=== PATIENT | female | born 1965 ===

== ENCOUNTER 2017-07-26 16:34 | Emergency (ER) | payer MEDICARE, OTHER ==
[2017-07-26 17:18] VITALS: BMI 40.8
[2017-07-26 17:23] VITALS: RESP 18; TEMP 98.5
--- NOTE | 2017-07-26 19:06 | ED PDOC ---
Arrival/HPI - General Chief Complaint: Dental Pain Time Seen by Provider: 07/26/17 19:02 Historian: Patient - History of Present Illness Narrative History of Present Illness (Text): 07/26/17 19:03 This 51 yo male presents to this this ED c/o gum swelling and pain x 3 weeks. Pain worsen today. Patient noted she had teeth extraction x 3 weeks ago. Patient has an appointment to see her maxillo facial surgeon next week. Patient denies fever, dysphagia, sore throat, facial swelling or FAR[place]TH. Time/Duration: Other (see hpi) Quality: Aching Context: Home Past Medical History - Provider Review Nursing Documentation Reviewed: Yes - Infectious Disease Hx of Infectious Diseases: None - Tetanus Immunization Tetanus Immunization: Unknown - Cardiac Hx Cardiac Disorders: Yes Hx Hypertension: Yes - Pulmonary Hx Respiratory Disorders: No - Neurological Hx Neurological Disorder: No - HEENT Hx HEENT Disorder: No - Renal Hx Renal Disorder: No - Endocrine/Metabolic Hx Endocrine Disorders: Yes Hx Diabetes Mellitus Type 2: Yes - Hematological/Oncological Hx Blood Disorders: Yes Hx Anemia: Yes - Integumentary Hx Dermatological Disorder: No - Musculoskeletal/Rheumatological Hx Musculoskeletal Disorders: No - Gastrointestinal Hx Gastrointestinal Disorders: No - Genitourinary/Gynecological Hx Genitourinary Disorders: No - Psychiatric Hx Psychophysiologic Disorder: Yes Hx Anxiety: Yes Hx Bipolar Disorder: Yes Hx Hallucinations: No Hx Substance Use: No - Surgical History Other/Comment: cesarian sectionx2 - Anesthesia Hx Anesthesia: Yes Hx Anesthesia Reactions: No Hx Malignant Hyperthermia: No - Suicidal Assessment Feels Threatened In Home Enviroment: No Family/Social History - Physician Review Nursing Documentation Reviewed: Yes Family/Social History: Other (non-contributory) Smoking Status: Former Smoker Hx Alcohol Use: No Hx Substance Use: No Hx Substance Use Treatment: No Allergies/Home Meds Allergies/Adverse Reactions: Allergies No Known Allergies Allergy (Verified 07/26/17 17:44) Home Medications: Home Meds Medication Instructions Recorded Confirmed [place] Carbonate [[place] Carb] 300 mg PO DAILY 06/15/13 07/26/17 Risperidone [Risperdal] 1 mg PO DAILY 06/15/13 07/26/17 Sitagliptin Phos/Metformin HCl 1 ter PO BID 06/15/13 07/26/17 [Janumet Xr 1000 mg-50 mg] Atorvastatin Calcium [Lipitor] 40 mg PO HS 12/07/14 07/26/17 Fenofibric Acid (Choline) 135 mg PO HS 12/07/14 07/26/17 [Trilipix] Hydrochlorothiazide/Valsarta 1 tab PO DAILY 12/07/14 07/26/17 [Diovan Hct 12.5 mg-320 mg] Insulin Detemir [Levemir Flexpen] 50 unit SC BID 12/07/14 07/26/17 Magnesium Oxide [Mag-Ox 400] 400 mg PO DAILY 12/07/14 07/26/17 Oxcarbazepine [Trileptal] 150 mg PO BID 12/07/14 07/26/17 Sertraline HCl [Zoloft] 25 mg PO DAILY 12/07/14 07/26/17 Review of Systems - Review of Systems Constitutional: Normal. absent: Fatigue, Weight Change, Fevers, Night Sweats Eyes: Normal ENT: Other (see hpi) Respiratory: Normal. absent: SOB, Cough Cardiovascular: Normal. absent: Chest Pain Gastrointestinal: Normal. absent: Abdominal Pain, Nausea, Vomiting Genitourinary Female: Normal Musculoskeletal: Normal Skin: Normal. absent: Rash Neurological: Normal. absent: Headache, Dizziness, Focal Weakness Endocrine: Normal Hemo/Lymphatic: Normal Psychiatric: Normal Physical Exam Vital Signs Temp Pulse Resp BP Pulse Ox 07/26/17 17:22 98.5 F 89 18 118/79 90 L Temperature: Afebrile Blood Pressure: Normal Pulse: Regular Respiratory Rate: Normal Appearance: Positive for: Well-Appearing, Non-Toxic, Comfortable Pain Distress: None Mental Status: Positive for: Alert and Oriented X 3 - Systems Exam Head: Present: Atraumatic, Normocephalic Pupils: Present: PERRL Extroacular Muscles: Present: EOMI Conjunctiva: Present: Normal Ears: Present: Normal, NORMAL TM, Normal Canal. No: Erythema Mouth: Present: Moist Mucous Membranes, Other (upper front gum mild swollen. No dental abscess or tenderness. no facial swelling) Pharnyx: Present: Normal. No: ERYTHEMA, EXUDATE, TONSILS ENLARGED, Peritonsilar Swelling, Uvular Deviation, Muffled/Hoarse Voice Nose (External): Present: Atraumatic Nose (Internal): Present: Normal Inspection Neck: Present: Normal Range of Motion Upper Extremity: Present: Normal Inspection, Normal ROM Lower Extremity: Present: Normal Inspection, Normal ROM Neurological: Present: GCS=15, CN II-XII Intact, Speech Normal, Motor Func Grossly Intact, Normal Sensory Function, Normal Cerebellar Funct, Gait Normal Skin: Present: Warm, Dry, Normal Color. No: Rashes Psychiatric: Present: Alert, Oriented x 3 Medical Decision Making ED Course and Treatment: 07/26/17 19:09 Re-evaluation. Patient feels better. Discussed results and plan with patient who expresses understanding. All questions answered and there is agreement with the plan to discharge home with instructions. Patient stable for discharge. Return if symptoms persist or worsen. Re-evaluation Time: 19:07 Reassessment Condition: Re-examined, Improved Disposition/Present on Arrival - Present on Arrival Any Indicators Present on Arrival: No History of DVT/PE: No History of Uncontrolled Diabetes: No Urinary Catheter: No History of Decub. Ulcer: No History Surgical Site Infection Following: None - Disposition Have Diagnosis and Disposition been Completed?: Yes Diagnosis: Swelling of gums, Toothache Disposition: HOME/ ROUTINE Disposition Time: 19:09 Patient Plan: Discharge Condition: GOOD Discharge Instructions (ExitCare): Toothache (ED) Additional Instructions: Call [facility] surgeon for follow up visit. take medication with food. Return to emergency if symptoms worsen. Prescriptions: Amoxicillin [Amoxil 500 mg Cap] 500 mg PO TID #30 cap Chlorhexidine 0.12% [Peridex] 15 ml PO BID #1 bottle Naproxen 500 mg PO BID PRN #14 tab PRN Reason: Pain, Severe (8-10) Referrals: Ryan Brown MD [Primary Care Provider] - Follow up with primary Forms: [employer] (Thai)
[2017-07-26] MEDS ORDERED: Naproxen 550 mg Tab PO STA (19:08)
[2017-07-26 19:21] VITALS: BP 112/73; PULSE 82; O2SAT 98
== END 2017-07-26 19:20 | disposition home or self-care (01) ==
LOC: ED 16:34
DX: K08.89 Other specified disorders of teeth and supporting structures (principal); K06.8 Other specified disorders of gingiva and edentulous alveolar ridge

== ENCOUNTER 2018-09-07 15:17 | Emergency (ER) | payer MEDICARE, OTHER ==
[2018-09-07] MEDS ORDERED: Sodium Chloride 0.9% 1,000 ML IV STA ×2 (15:48→17:48)
[2018-09-07] MEDS ORDERED: Insulin Regular 1 UNITS/0.01 ML ML IVP STA (15:48)
[2018-09-07 16:03] VITALS: O2SAT 100; BMI 35.9
[2018-09-07 16:26] LABS: BASO # 0.01 K/mm3 (0.0-2.0); BASO % 0.2 % (0.0-3.0); EOS % 0.3 % (1.5-5.0); GRAN # 4.44 (1.4-6.5); GRAN % 66.7 % (50.0-68.0); HEMOGLOBIN 11.8 g/dL (12.0-16.0); LYMPH # 1.4 (1.2-3.4); LYMPH % 21.7 % (22.0-35.0); MEAN CELL VOLUME 76.5 fl (80.0-105.0); MEAN CORPUSCULAR HGB CONC 32.7 g/dl (31.0-37.0); MEAN PLATELET VOLUME 10.4 fl (7.0-11.0); MONO # 0.7 (0.1-0.6); MONO % 11.1 % (1.0-6.0); RBC 4.72 10^6/uL (3.5-6.1); RED CELL DISTRIBUTION WIDTH 12.9 % (11.5-14.5); WHITE BLOOD COUNT 6.7 10^3/ul (4.5-11.0)
[2018-09-07 16:30] LABS: INR 1.08; PARTIAL THROMBOPLASTIN TIME 26.4 Seconds (25.1-36.5); PROTHROMBIN TIME 12.3 SECONDS (9.4-12.5)
--- NOTE | 2018-09-07 16:31 | CT ---
Date of service: 09/07/2018 PROCEDURE: CT HEAD WITHOUT CONTRAST. HISTORY: dizziness COMPARISON: None available. TECHNIQUE: Axial computed tomography images were obtained through the head/brain without intravenous contrast. Radiation dose: Total exam DLP = 755.87 mGy-cm. This CT exam was performed using one or more of the following dose reduction techniques: Automated exposure control, adjustment of the mA and/or kV according to patient size, and/or use of iterative reconstruction technique. FINDINGS: HEMORRHAGE: No intracranial hemorrhage. BRAIN: No mass effect or edema. No atrophy or chronic microvascular ischemic changes. VENTRICLES: Unremarkable. No hydrocephalus. CALVARIUM: Unremarkable. PARANASAL SINUSES: Unremarkable as visualized. No significant inflammatory changes. MASTOID AIR CELLS: Unremarkable as visualized. No inflammatory changes. OTHER FINDINGS: None. IMPRESSION: No acute findings
[2018-09-07 16:54] LABS: TROPONIN I < 0.01 ng/mL
[2018-09-07 16:55] LABS: URINE APPEARANCE SLIGHT-CLOUDY (CLEAR); URINE BILIRUBIN NEGATIVE (NEGATIVE); URINE BLOOD TRACE-LYSED (NEGATIVE); URINE COLOR YELLOW (YELLOW); URINE GLUCOSE (UA) >=1000 mg/dL (NEGATIVE); URINE LEUKOCYTE ESTERASE SMALL Leu/uL (NEGATIVE); URINE PROTEIN 30 mg/dL (<30 mg/dL)
[2018-09-07 16:59] LABS: URINE BACTERIA TRACE (NEG)
[2018-09-07 16:59] LABS: ALT/SGPT 30 U/L (7-56); AST/SGOT 37 U/L (14-36); BLOOD UREA NITROGEN 16 mg/dL (7-21); CALCIUM 9.4 mg/dL (8.4-10.5); GFR NON-AFRICAN AMERICAN > 60
[2018-09-07 17:00] LABS: URINE AMORPHOUS SEDIMENT MODERATE
[2018-09-07] MEDS ORDERED: Potassium Chloride 20 mEq ER Tab PO STA (17:03)
--- NOTE | 2018-09-07 17:50 | RAD ---
Date of service: 09/07/2018 PROCEDURE: CHEST RADIOGRAPH, 1 VIEW HISTORY: admission COMPARISON: 10/01/2016. FINDINGS: LUNGS: Clear. PLEURA: No pneumothorax or pleural fluid seen. CARDIOVASCULAR: Normal. OSSEOUS STRUCTURES: No significant abnormalities. VISUALIZED UPPER ABDOMEN: Normal. OTHER FINDINGS: None. IMPRESSION: No active pulmonary disease.
--- NOTE | 2018-09-07 17:55 | ED PDOC ---
Addendum entered and electronically signed by Rosalva Holt PA 09/10/18 17:32: Addendum Addendum: 09/10/18 17:32 called patient and left message to call back regarding urine culture. Original Note: Arrival/HPI - General Historian: Patient - History of Present Illness Narrative History of Present Illness (Text): 09/07/18 17:54 52yo female with pmhx of hypertension, Diabetes, bipolar, depression who was referred to the ED from Dr. Brown's office to r/o DKA. Patient reports generalized weakness with decreased appetite x 5days. States she didn't take any of her medications for these days. States she slept, woke up and went back to sleep. She denies any focal weakness, chest pain, SOB, diaphoresis, fever,chills, nausea, vomiting, abdominal pain, any other complaint. <Martha Bal - Last Filed: 09/07/18 19:00> <Rosalva Holt - Last Filed: 09/10/18 17:32> <Wolfgang Sinclair - Last Filed: 09/11/18 23:57> - General Chief Complaint: Weakness/Neurological Deficit Time Seen by Provider: 09/07/18 15:22 Past Medical History - Provider Review Nursing Documentation Reviewed: Yes - Infectious Disease Hx of Infectious Diseases: None - Tetanus Immunization Tetanus Immunization: Unknown - Reproductive Menopause: No - Cardiac Hx Cardiac Disorders: Yes Hx Hypertension: Yes - Pulmonary Hx Respiratory Disorders: Yes Hx Asthma: Yes - Neurological Hx Neurological Disorder: No - HEENT Hx HEENT Disorder: No - Renal Hx Renal Disorder: No - Endocrine/Metabolic Hx Endocrine Disorders: Yes Hx Diabetes Mellitus Type 2: Yes - Hematological/Oncological Hx Blood Disorders: Yes Hx Anemia: Yes - Integumentary Hx Dermatological Disorder: No - Musculoskeletal/Rheumatological Hx Musculoskeletal Disorders: No - Gastrointestinal Hx Gastrointestinal Disorders: No - Genitourinary/Gynecological Hx Genitourinary Disorders: Yes Hx Urinary Tract Infection: Yes - Psychiatric Hx Psychophysiologic Disorder: Yes Hx Anxiety: Yes Hx Bipolar Disorder: Yes Hx Depression: Yes Hx Hallucinations: No Hx Substance Use: No - Surgical History Hx Section: Yes Hx Tubal Ligation: Yes Other/Comment: cesarian sectionx2 - Anesthesia Hx Anesthesia: Yes Hx Anesthesia Reactions: No Hx Malignant Hyperthermia: No - Suicidal Assessment Feels Threatened In Home Enviroment: No <Diru,Happiness A - Last Filed: 09/07/18 19:00> Family/Social History - Physician Review Nursing Documentation Reviewed: Yes Family/Social History: Unknown Family HX Smoking Status: Former Smoker Hx Alcohol Use: No Hx Substance Use: No Hx Substance Use Treatment: No <Diru,Happiness A - Last Filed: 09/07/18 19:00> Allergies/Home Meds <Diru,Happiness A - Last Filed: 09/07/18 19:00> <Rosalva Holt T - Last Filed: 09/10/18 17:32> <Wolfgang Sinclair - Last Filed: 09/11/18 23:57> Allergies/Adverse Reactions: Allergies No Known Allergies Allergy (Verified 07/26/17 17:44) Home Medications: Home Meds Medication Instructions Recorded Confirmed Sitagliptin Phos/Metformin HCl 1 ter PO BID 06/15/13 09/07/18 [Janumet Xr 1000 mg-50 mg] Atorvastatin Calcium [Lipitor] 80 mg PO HS 12/07/14 09/07/18 Benzonatate [Tessalon Perle] 200 mg PO TID 09/07/18 09/07/18 Carvedilol [Coreg] 25 mg PO BID 09/07/18 09/07/18 DULoxetine [Cymbalta] 1 cap PO HS 09/07/18 09/07/18 Ergocalciferol [Drisdol 50,000 1 cap PO Q3D 09/07/18 09/07/18 Intl Units Cap] Fluticasone/Salmeterol 500/50 1 puff IH DAILY 09/07/18 09/07/18 [Advair Diskus 500/50] Folic Acid 1 tab PO DAILY 09/07/18 09/07/18 Icosapent Ethyl [Vascepa] 2 cap PO BID 09/07/18 09/07/18 Insulin Detemir [Levemir] 60 unit SC BID 09/07/18 09/07/18 Liraglutide [Victoza 2-Clayton] 1.8 mg SC DAILY 09/07/18 09/07/18 Pantoprazole [Protonix EC Tab] 1 tab PO DAILY 09/07/18 09/07/18 RX: Magnesium Oxide [Mag-Ox] 1 tab PO BID 09/07/18 09/07/18 Review of Systems - Physician Review All systems were reviewed & negative as marked: Yes - Review of Systems Constitutional: Fatigue Eyes: Normal ENT: Normal Respiratory: Normal Cardiovascular: Normal Gastrointestinal: Normal Genitourinary Female: Normal Musculoskeletal: Normal Skin: Normal Neurological: Normal Endocrine: Normal Hemo/Lymphatic: Normal Psychiatric: Normal <DiruHappiness A - Last Filed: 09/07/18 19:00> Physical Exam Vital Signs Reviewed: Yes Vital Signs Temp Pulse Resp BP Pulse Ox 09/07/18 15:41 98.7 F 99 H 18 137/78 100 Temperature: Afebrile Blood Pressure: Normal Pulse: Regular Respiratory Rate: Normal Appearance: Positive for: Well-Appearing, Non-Toxic, Comfortable Pain Distress: None Mental Status: Positive for: Alert and Oriented X 3 Finger Stick Blood Glucose: 304 - Systems Exam Head: Present: Atraumatic, Normocephalic Pupils: Present: PERRL Extroacular Muscles: Present: EOMI Conjunctiva: Present: Normal Mouth: Present: Moist Mucous Membranes Neck: Present: Normal Range of Motion Respiratory/Chest: Present: Clear to Auscultation, Good Air Exchange. No: Respiratory Distress, Accessory Muscle Use Cardiovascular: Present: Regular Rate and Rhythm, Normal S1, S2. No: Murmurs Abdomen: No: Tenderness, Distention, Peritoneal Signs Back: Present: Normal Inspection Upper Extremity: Present: Normal Inspection. No: Cyanosis, Edema Lower Extremity: Present: Normal Inspection. No: Edema Neurological: Present: GCS=15, CN II-XII Intact, Speech Normal Skin: Present: Warm, Dry, Normal Color. No: Rashes Psychiatric: Present: Alert, Oriented x 3, Normal Insight, Normal Concentration <Diru,Happiness A - Last Filed: 09/07/18 19:00> Vital Signs Temp Pulse Resp BP Pulse Ox 09/07/18 19:51 100 09/07/18 19:49 98.3 F 94 H 17 148/80 100 09/07/18 19:17 99 H 18 150/75 100 09/07/18 17:54 89 17 135/80 100 09/07/18 15:41 98.7 F 99 H 18 137/78 100 <Wolfgang Sinclair - Last Filed: 09/11/18 23:57> Medical Decision Making ED Course and Treatment: 10/18/18 19:00 PT in ED for stated history. She was not in any distress. She was ambulating well in ED. Neurologically intact and hemodynamically stable. FS was 439 in ED Labs 1L NS, 10units insulin IVP CXR Head CT EKG On re evaluation pt remain stable and in no distress Lab reviewed and BS of 503 was noted. No AG. Repeat FS was 309 in ED EKG NSR @99bpm NSTEMI CXR NAD Head CT - No acute finding Result was DW Dr. Brown while he was in ED and he recommended that pt be DC home to f/u with his office on Tuesday Repeat FS s/p second liter of NS was given - Lab Interpretations Lab Results: 09/07/18 15:35 09/07/18 15:35 Lab Results 09/07/18 16:52: Urine Color Yellow, Urine Appearance Slight-cloudy, Urine pH 6.0, Ur Specific [place] 1.010, Urine Protein 30 H, Urine Glucose (UA) >=1000, Urine Ketones Negative, Urine Blood Trace-lysed H, Urine Nitrate Negative, Urine Bilirubin Negative, Urine Urobilinogen 1.0 H, Ur Leukocyte Esterase Small H, Urine RBC 10 - 15, Urine WBC 5 - 10, Ur Epithelial Cells 10 - 12, Amorphous Sediment Moderate, Urine Bacteria Trace 09/07/18 15:37: POC Glucose (mg/dL) 423 H* 09/07/18 15:35: Sodium 132, Potassium 3.1 L, Chloride 88 L, Carbon Dioxide 31, Anion Gap 16, BUN 16, Creatinine 0.5 L, Est GFR ( Amer) > 60, Est GFR (Non-Af Amer) > 60, Random Glucose 505 H*, Calcium 9.4, Magnesium 2.1, Total Bilirubin 1.0, AST 37 H, ALT 30, Alkaline Phosphatase 193 H, Lactate Dehydrogenase 538, Total Creatine Kinase 61, Troponin I < 0.01, Total Protein 8.0, Albumin 4.0, Globulin 4.0, Albumin/Globulin Ratio 1.0 L 09/07/18 15:35: PT 12.3, INR 1.08, APTT 26.4 09/07/18 15:35: WBC 6.7 D, RBC 4.72, Hgb 11.8 L, Hct 36.1, MCV 76.5 L, MCH 25.0, MCHC 32.7, RDW 12.9, Plt Count 236, MPV 10.4, Gran % 66.7, Lymph % (Auto) 21.7 L, Gaines % (Auto) 11.1 H, Eos % (Auto) 0.3 L, Baso % (Auto) 0.2, Gran # 4.44, Lymph # (Auto) 1.4, Gaines # (Auto) 0.7 H, Eos # (Auto) 0.0, Baso # (Auto) 0.01 - RAD Interpretation Radiology Orders: 09/07/18 15:43 CHEST ONE VIEW [RAD] Stat 09/07/18 15:45 HEAD W/O CONTRAST [CT] Stat - Medication Orders Current Medication Orders: Sodium Chloride (Sodium Chloride 0.9%) 1,000 mls @ 999 mls/hr IV .Q1H1M STA Stop: 09/07/18 18:48 Discontinued Medications Sodium Chloride (Sodium Chloride 0.9%) 1,000 mls @ 999 mls/hr IV .Q1H1M STA Stop: 09/07/18 16:48 Last Admin: 09/07/18 16:07 Dose: 999 mls/hr eMAR Start Stop Document 09/07/18 16:07 (Rec: 09/07/18 16:07 [id number][facility] Intravenous Solution Start Date 09/07/18 Start Time 16:07 End Date 09/07/18 End time 17:18 Total Infusion Time 71 Insulin Human Regular (Humulin R) 10 units IVP ONCE STA Stop: 09/07/18 15:49 Last Admin: 09/07/18 16:09 Dose: 10 u MAR Blood Glucose Document 09/07/18 16:09 (Rec: 09/07/18 16:09 [id number]) Blood Glucose Finger Stick Blood Glucose (70-120) 423 IVP Administration Document 09/07/18 16:09 (Rec: 09/07/18 16:09 [id number]) Charges for Administration # of IVP Administrations 1 Potassium Chloride (K-Dur 20 Meq Er Tab) 40 meq PO STAT STA Stop: 09/07/18 17:04 Last Admin: 09/07/18 17:29 Dose: 40 meq <Diru,Happiness A - Last Filed: 09/07/18 19:00> - Lab Interpretations Microbiology Results: Microbiology Results 09/07/18 23:28 Urine,Clean Catch Urine Culture - Final Klebsiella Pneumoniae Ssp Pneu Lab Results: 09/07/18 15:35 09/07/18 15:35 Lab Results 09/07/18 19:44: POC Glucose (mg/dL) 274 H 09/07/18 18:00: pCO2 42, pO2 61.0 L, HCO3 30.6 H, ABG pH 7.47 H, ABG Total CO2 31.9 H, ABG O2 Saturation 95.4, ABG O2 Content 14.1 L, ABG Base Excess 6.3 H, ABG Hemoglobin 10.9 L, ABG Carboxyhemoglobin 2.5 H, POC ABG HHb (Measured) 4.4, ABG Methemoglobin 1.6, ABG O2 Capacity 14.8 L, Hgb O2 Saturation 91.6 L, FiO2 21.0 09/07/18 17:46: POC Glucose (mg/dL) 304 H 09/07/18 16:52: Urine Color Yellow, Urine Appearance Slight-cloudy, Urine pH 6.0, Ur Specific [place] 1.010, Urine Protein 30 H, Urine Glucose (UA) >=1000, Urine Ketones Negative, Urine Blood Trace-lysed H, Urine Nitrate Negative, Urine Bilirubin Negative, Urine Urobilinogen 1.0 H, Ur Leukocyte Esterase Small H, Urine RBC 10 - 15, Urine WBC 5 - 10, Ur Epithelial Cells 10 - 12, Amorphous Sediment Moderate, Urine Bacteria Trace 09/07/18 15:37: POC Glucose (mg/dL) 423 H* 09/07/18 15:35: Sodium 132, Potassium 3.1 L, Chloride 88 L, Carbon Dioxide 31, Anion Gap 16, BUN 16, Creatinine 0.5 L, Est GFR ( Amer) > 60, Est GFR (Non-Af Amer) > 60, Random Glucose 505 H*, Calcium 9.4, Magnesium 2.1, Total Bilirubin 1.0, AST 37 H, ALT 30, Alkaline Phosphatase 193 H, Lactate Dehydrogenase 538, Total Creatine Kinase 61, Troponin I < 0.01, Total Protein 8.0, Albumin 4.0, Globulin 4.0, Albumin/Globulin Ratio 1.0 L 09/07/18 15:35: PT 12.3, INR 1.08, APTT 26.4 09/07/18 15:35: WBC 6.7 D, RBC 4.72, Hgb 11.8 L, Hct 36.1, MCV 76.5 L, MCH 25.0, MCHC 32.7, RDW 12.9, Plt Count 236, MPV 10.4, Gran % 66.7, Lymph % (Auto) 21.7 L, Gaines % (Auto) 11.1 H, Eos % (Auto) 0.3 L, Baso % (Auto) 0.2, Gran # 4.44, Lymph # (Auto) 1.4, Gaines # (Auto) 0.7 H, Eos # (Auto) 0.0, Baso # (Auto) 0.01 - RAD Interpretation Radiology Orders: 09/07/18 15:43 CHEST ONE VIEW [RAD] Stat 09/07/18 15:45 HEAD W/O CONTRAST [CT] Stat - Medication Orders Current Medication Orders: Discontinued Medications Cephalexin Monohydrate (Keflex) 500 mg PO STAT STA; Protocol Stop: 09/07/18 17:58 Sodium Chloride (Sodium Chloride 0.9%) 1,000 mls @ 999 mls/hr IV .Q1H1M STA Stop: 09/07/18 16:48 Last Admin: 09/07/18 16:07 Dose: 999 mls/hr eMAR Start Stop Document 09/07/18 16:07 SF (Rec: 09/07/18 16:07 [id number]) Intravenous Solution Start Date 09/07/18 Start Time 16:07 End Date 09/07/18 End time 17:18 Total Infusion Time 71 Sodium Chloride (Sodium Chloride 0.9%) 1,000 mls @ 999 mls/hr IV .Q1H1M STA Stop: 09/07/18 18:48 Last Admin: 09/07/18 17:56 Dose: 999 mls/hr eMAR Start Stop Document 09/07/18 17:56 SF (Rec: 09/07/18 17:56 [id number]) Intravenous Solution Start Date 09/07/18 Start Time 17:56 End Date 09/07/18 End time 18:57 Total Infusion Time 61 Insulin Human Regular (Humulin R) 10 units IVP ONCE STA Stop: 09/07/18 15:49 Last Admin: 09/07/18 16:09 Dose: 10 u MAR Blood Glucose Document 09/07/18 16:09 SF (Rec: 09/07/18 16:09 [id number]) Blood Glucose Finger Stick Blood Glucose (70-120) 423 IVP Administration Document 09/07/18 16:09 SF (Rec: 09/07/18 16:09 [id number]) Charges for Administration # of IVP Administrations 1 Potassium Chloride (K-Dur 20 Meq Er Tab) 40 meq PO STAT STA Stop: 09/07/18 17:04 Last Admin: 09/07/18 17:29 Dose: 40 meq <Wolfgang Sinclair - Last Filed: 09/11/18 23:57> - PA / WEIGHT ENGINEER / Resident Statement / has reviewed & agrees with the documentation as recorded. <Wolfgang Sinclair - Last Filed: 09/11/18 23:57> Disposition/Present on Arrival - Present on Arrival Any Indicators Present on Arrival: No History of DVT/PE: No History of Uncontrolled Diabetes: No Urinary Catheter: No History of Decub. Ulcer: No History Surgical Site Infection Following: None - Disposition Have Diagnosis and Disposition been Completed?: Yes Disposition Time: 18:30 Patient Plan: Discharge <Martha Bal - Last Filed: 09/07/18 19:00> <Rosalva Holt - Last Filed: 09/10/18 17:32> <Wolfgang Sinclair - Last Filed: 09/11/18 23:57> - Disposition Diagnosis: Hyperglycemia due to type 2 diabetes mellitus Disposition: HOME/ ROUTINE Condition: STABLE Discharge Instructions (ExitCare): Hyperglycemia, Adult Additional Instructions: Follow up with your Doctor, Dr. Brown on Tuesday Return to ED for any worsening symptoms Prescriptions: Cephalexin [Keflex] 500 mg PO TID #21 capsule Referrals: Ryan Brown MD [Staff Provider] - Follow up with primary Forms: DrNaturalHealing (Sami)
[2018-09-07 18:11] LABS: ARTERIAL BLOOD GAS HCO3 30.6 mmol/L (21-28); ARTERIAL BLOOD GAS HEMOGLOBIN 10.9 g/dL (11.7-17.4); ARTERIAL BLOOD GAS O2 CAPACITY 14.8 mL/dl (16-24); ARTERIAL BLOOD GAS O2 CONTENT 14.1 ML/dl (15-23); ARTERIAL BLOOD GAS O2 SAT 95.4 % (95-98); ARTERIAL BLOOD GAS PCO2 42 mm/Hg (35-45); ARTERIAL BLOOD GAS PH 7.47 (7.35-7.45); ARTERIAL BLOOD GAS TCO2 31.9 mmol.L (22-28)
[2018-09-07 19:51] VITALS: BP 148/80; PULSE 94; RESP 17; TEMP 98.3
--- NOTE | 2018-09-07 22:07 | CARD ---
APPROVED REPORT Date of service: 09/07/2018 EKG Measurement Heart [id number] <Conclusion> Normal sinus rhythm Possible Left atrial enlargement Borderline ECG
== END 2018-09-07 19:51 | disposition home or self-care (01) ==
LOC: ED 15:17
DX: E11.65 Type 2 diabetes mellitus with hyperglycemia (principal); I10 Essential (primary) hypertension; F31.9 Bipolar disorder, unspecified; Z87.891 Personal history of nicotine dependence
CPT/HCPCS: 70450; 71045; 80053; 81001; 82550; 82803; 82948; 83615; 83735; 84484; 85025; 85610; 85730; 87086; 87181; 93005; 96361; 96374; 99285; J7030

== ENCOUNTER 2018-09-13 20:53 | Inpatient (IN) | payer MEDICARE, OTHER ==
[2018-09-13 20:53] VITALS: BMI 40.8
--- NOTE | 2018-09-13 23:11 | ED PDOC ---
Arrival/HPI - General Time Seen by Provider: 09/13/18 22:45 Historian: Patient - History of Present Illness Narrative History of Present Illness (Text): 09/13/18 23:05 Danica Addison is a 52 year old female, whose past medical history includes hypertension, hyperlipidemia, bipolar disorder, anxiety, depression, IDDM, diabetic neuropathy, gastroparesis, recurrent UTIs, asthma, and fibroid uterus, who presents to the Emergency department complaining of vomiting. Patient states she has been experiencing nausea with multiple episodes of vomiting and diffuse abdominal pain. Patient reports associated chest pain, dry mouth, and dizziness. Patient states she has been unable to tolerate PO secondary to recurrent vomiting. Patient was seen on 09/07/2018 for similar complaints and was discharged home. Patient followed-up with her PMD today, who advised her to return to the Emergency department for further evaluation. Patient denies any fever, chills, shortness of breath, diarrhea, urinary symptoms, back pain, neck pain, headache, or any other complaints. PMD: Dr. Brown Time/Duration: 1 week Symptom Onset: Gradual Symptom Course: Unchanged Activities at Onset: Light Context: Home Past Medical History - Provider Review Nursing Documentation Reviewed: Yes - Infectious Disease Hx of Infectious Diseases: None - Tetanus Immunization Tetanus Immunization: Unknown - Cardiac Hx Cardiac Disorders: Yes Hx Hypertension: Yes - Pulmonary Hx Respiratory Disorders: No - Neurological Hx Neurological Disorder: No - HEENT Hx HEENT Disorder: No - Renal Hx Renal Disorder: No - Endocrine/Metabolic Hx Endocrine Disorders: Yes Hx Diabetes Mellitus Type 2: Yes - Hematological/Oncological Hx Blood Disorders: Yes Hx Anemia: Yes - Integumentary Hx Dermatological Disorder: No - Musculoskeletal/Rheumatological Hx Musculoskeletal Disorders: No - Gastrointestinal Hx Gastrointestinal Disorders: No - Genitourinary/Gynecological Hx Genitourinary Disorders: No - Psychiatric Hx Psychophysiologic Disorder: Yes Hx Anxiety: Yes Hx Bipolar Disorder: Yes Hx Depression: Yes Hx Hallucinations: No Hx Substance Use: No - Surgical History Hx Section: Yes (x2) - Anesthesia Hx Anesthesia: Yes Hx Anesthesia Reactions: No Hx Malignant Hyperthermia: No - Suicidal Assessment Feels Threatened In Home Enviroment: No Family/Social History - Physician Review Nursing Documentation Reviewed: Yes Family/Social History: Unknown Family HX Smoking Status: Former Smoker Hx Alcohol Use: No Hx Substance Use: No Hx Substance Use Treatment: No Allergies/Home Meds Allergies/Adverse Reactions: Allergies No Known Allergies Allergy (Verified 09/13/18 23:11) Home Medications: Home Meds Medication Instructions Recorded Confirmed Sitagliptin Phos/Metformin HCl 1 ter PO BID 06/15/13 09/14/18 [Janumet Xr 1000 mg-50 mg] Atorvastatin Calcium [Lipitor] 80 mg PO HS 12/07/14 09/14/18 Benzonatate [Tessalon Perle] 200 mg PO TID 09/07/18 09/14/18 Carvedilol [Coreg] 25 mg PO BID 09/07/18 09/14/18 DULoxetine [Cymbalta] 1 cap PO HS 09/07/18 09/14/18 Ergocalciferol [Drisdol 50,000 1 cap PO Q3D 09/07/18 09/14/18 Intl Units Cap] Fluticasone/Salmeterol 500/50 1 puff IH DAILY 09/07/18 09/14/18 [Advair Diskus 500/50] Folic Acid 1 tab PO DAILY 09/07/18 09/14/18 Icosapent Ethyl [Vascepa] 2 cap PO BID 09/07/18 09/14/18 Insulin Detemir [Levemir] 60 unit SC BID 09/07/18 09/14/18 Liraglutide [Victoza 2-[place]] 1.8 mg SC DAILY 09/07/18 09/14/18 Magnesium Oxide [Mag-Ox] 1 tab PO BID 09/07/18 09/14/18 Pantoprazole [Protonix EC Tab] 1 tab PO DAILY 09/07/18 09/14/18 Review of Systems - Physician Review All systems were reviewed & negative as marked: Yes - Review of Systems Constitutional: Normal. absent: Fevers Eyes: Normal ENT: Normal Respiratory: Normal. absent: SOB, Cough Cardiovascular: Chest Pain Gastrointestinal: Abdominal Pain, Nausea, Vomiting, Appetite Changes (+decreased PO intake). absent: Diarrhea Genitourinary Female: Normal. absent: Dysuria, Frequency, Hematuria, Urine Output Changes Musculoskeletal: Normal. absent: Back Pain, Neck Pain Skin: Normal. absent: Rash Neurological: Normal. absent: Headache, Dizziness Endocrine: Normal Hemo/Lymphatic: Normal Psychiatric: Normal Physical Exam Vital Signs Reviewed: Yes Temperature: Afebrile Blood Pressure: Normal Pulse: Regular Respiratory Rate: Normal Appearance: Positive for: Well-Appearing, Non-Toxic, Comfortable Pain Distress: None Mental Status: Positive for: Alert and Oriented X 3 - Systems Exam Head: Present: Atraumatic, Normocephalic Pupils: Present: PERRL Extroacular Muscles: Present: EOMI Conjunctiva: Present: Normal Mouth: Present: Moist Mucous Membranes Neck: Present: Normal Range of Motion Respiratory/Chest: Present: Clear to Auscultation, Good Air Exchange. No: Respiratory Distress, Accessory Muscle Use Cardiovascular: Present: Regular Rate and Rhythm, Normal S1, S2. No: Murmurs Abdomen: No: Tenderness, Distention, Peritoneal Signs Back: Present: Normal Inspection Upper Extremity: Present: Normal Inspection. No: Cyanosis, Edema Lower Extremity: Present: Normal Inspection. No: Edema Neurological: Present: GCS=15, CN II-XII Intact, Speech Normal Skin: Present: Warm, Dry, Normal Color. No: Rashes Psychiatric: Present: Alert, Oriented x 3, Normal Insight, Normal Concentration Medical Decision Making ED Course and Treatment: 09/13/18 23:05 Impression: 52 year old female complaining of nausea, vomiting, abdominal pain, chest pain, and dizziness. Plan: -- EKG -- Chest X-ray -- Labs, amylase, lipase, cardiac enzymes -- Urinalysis, urine cultures -- Reassess and disposition Prior Visits: Notes and results from previous visits were reviewed. Progress Notes: Reviewed EKG, NSR at [address] bpm[address] Non-specific ST/T wave changes. 09/14/18 03:53 CT Abdomen and Pelvis reviewed, shows: The liver is of uniform attenuation without mass or defect. There is no intra or extrahepatic biliary ductal dilatation. The spleen is normal. The gallbladder is within normal limits. The pancreas is of normal contour and attenuation characteristics. There is no evidence of adrenal mass. Bilateral perinephric fat stranding. Mildly prominent retroperitoneal lymph nodes with the largest measuring 1.2 cm. Both kidneys demonstrate prompt and equal nephrograms. The kidneys are normal in size, shape and configuration. There is no evidence of renal or ureteral mass. No renal or ureteral calculi are identified. There is no hydroureter or hydronephrosis. No evidence for appendicitis. There is no bowel wall thickening. No evidence for small or large bowel obstruction. There is no evidence of abdominal ascites or lymphadenopathy. There is no evidence of intrinsic or extrinsic bladder mass. There is no pelvic ascites or lymphadenopathy. Mild diffuse thickening of the bladder. Images of the lung bases show no evidence of pleural or parenchymal mass. There are no pleural effusions. The bony structures are free of lytic or blastic lesions. IMPRESSION: Suspected cystitis and ascending urinary tract infection. Thank you for your kind referral of this patient. Electronically signed on Sep 14, 2018 3:44:37 AM EDT by: Dickson Archibald M.D., Certified by ABR, MSK, Neuroradiology 09/14/18 04:[address] Brown, who is aware and agrees with plan. Accepts pt in to his service. [facility] go to [facility] for intractable vomiting and UTIs. residential supervisor paged. 09/14/18 04:20 Case discussed with certified ophthalmic medical technician precision lens generator, who is aware and agrees with plan. - Lab Interpretations I have reviewed the lab results: Yes - RAD Interpretation Fruit Picker: Radiologist - EKG Interpretation Interpreted by ED Physician: Yes Type: 12 lead EKG - Scribe Statement The provider has reviewed the documentation as recorded by the Scribe Ashlee Kay Provider Scribe Attestation: All medical record entries made by the Scribe were at my direction and personally dictated by me. I have reviewed the chart and agree that the record accurately reflects my personal performance of the history, physical exam, medical decision making, and the department course for this patient. I have also personally directed, reviewed, and agree with the discharge instructions and disposition. Disposition/Present on Arrival - Present on Arrival Any Indicators Present on Arrival: No History of DVT/PE: No History of Uncontrolled Diabetes: No Urinary Catheter: No History Surgical Site Infection Following: None - Disposition Have Diagnosis and Disposition been Completed?: Yes Diagnosis: Epigastric pain, Urinary tract infection Disposition: HOSPITALIZED Disposition Time: 04:30 Condition: FAIR
[2018-09-13] MEDS ORDERED: Oxycodone/Acetaminophen 5/325 mg Tab PO STA (23:20)
[2018-09-13] MEDS ORDERED: Sodium Chloride 0.9% 1,000 ML IV SCH (23:45)
[2018-09-14 00:35] LABS: BASO # 0.02 K/mm3 (0.0-2.0); BASO % 0.2 % (0.0-3.0); EOS % 0.3 % (1.5-5.0); GRAN # 8.07 (1.4-6.5); GRAN % 75.5 % (50.0-68.0); LYMPH # 1.9 (1.2-3.4); LYMPH % 17.7 % (22.0-35.0); MEAN CELL VOLUME 78.2 fl (80.0-105.0); MEAN PLATELET VOLUME 9.6 fl (7.0-11.0); MONO # 0.7 (0.1-0.6); MONO % 6.3 % (1.0-6.0); RBC 4.4 10^6/uL (3.5-6.1); RED CELL DISTRIBUTION WIDTH 13.4 % (11.5-14.5); WHITE BLOOD COUNT 10.7 10^3/ul (4.5-11.0)
[2018-09-14 00:53] LABS: TROPONIN I < 0.01 ng/mL
[2018-09-14 00:58] LABS: ALB/GLOB RATIO 0.9 (1.1-1.8); ALBUMIN 3.8 g/dL (3.0-4.8); ALT/SGPT 24 U/L (7-56); AMYLASE 48 U/L (35-125); AST/SGOT 20 U/L (14-36); BLOOD UREA NITROGEN 9 mg/dL (7-21); CALCIUM 9.3 mg/dL (8.4-10.5); GFR NON-AFRICAN AMERICAN > 60; LIPASE 106 U/L (23-300)
[2018-09-14] MEDS ORDERED: Iohexol 350 MG/100 ML VIAL ONE (01:26)
[2018-09-14 02:16] LABS: URINE BILIRUBIN NEGATIVE (NEGATIVE); URINE BLOOD TRACE-INTACT (NEGATIVE); URINE GLUCOSE (UA) >=1000 mg/dL (NEGATIVE); URINE LEUKOCYTE ESTERASE MODERATE Leu/uL (NEGATIVE); URINE PROTEIN 100 mg/dL (<30 mg/dL); URINE UROBILINOGEN 0.2 E.U./dL (<1 E.U./dL)
[2018-09-14 02:21] LABS: URINE APPEARANCE SL CLOUDY (CLEAR); URINE COLOR YELLOW (YELLOW)
[2018-09-14 02:30] LABS: URINE BACTERIA MANY (NEG); URINE RBC 0 - 2 /hpf (0-2); URINE WBC 25 - 30 /hpf (0-6)
[2018-09-14] MEDS ORDERED: Insulin Regular 1 UNITS/0.01 ML ML SC STA ×2 (04:17→05:58)
[2018-09-14] MEDS ORDERED: cefTRIAXone 1 gm 1 GM/100 ML BAG IVPB STA (04:18)
--- NOTE | 2018-09-14 05:26 | CP.PCM.HP ---
<Leigh AnnAnand - Last Filed: 09/14/18 06:07> History of Present Illness - History of Present Illness History of Present Illness: Anand Beltrán, PGY1 H&P for Dr. Brown Service This is a 52 year old female with PMH of DM, HLD, HTN, anxiety disorder, bipolar disorder, diabetic neuropathy, gastroparesis, asthma and recurrent UTI presenting to the hospital for one week history of vomiting, abdominal pain and urinary frequency. Patient was seen in ED on 09/07/2018 for similar complaints and discharged home on antibiotics. Patient continued to have vomiting and abdominal pain through the week and acutely worsened yesterday. Patient says she vomited 5 times yesterday that was nonbloody and watery. She also admits to decreased appetite and has also had increased urinary frequency with foul smelling urine. She was seen by her PMD who recommended she come to the ED. She denies CP, SOB, back pain, numbness, tingling, swelling, diarrhea, constipation, fevers, chills, recent travel and recent lifestyle change. 12 point ROS noted here, otherwise unremarkable. PMD: Dr. Brown PMH: as above SH: former smoker, denies drinking and drugs Sx: x2 FH: DM All: NKDA Meds: per MAR Present on Admission - Present on Admission Any Indicators Present on Admission: Yes History of Uncontrolled Diabetes: Yes Past Patient History - Infectious Disease Hx of Infectious Diseases: None - Tetanus Immunizations Tetanus Immunization: Unknown - Past Social History Smoking Status: Former Smoker - CARDIAC Hx Cardiac Disorders: Yes Hx Hypertension: Yes - PULMONARY Hx Respiratory Disorders: No - NEUROLOGICAL Hx Neurological Disorder: No - HEENT Hx HEENT Problems: No - RENAL Hx Chronic Kidney Disease: No - ENDOCRINE/METABOLIC Hx Endocrine Disorders: Yes Hx Diabetes Mellitus Type 2: Yes - HEMATOLOGICAL/ONCOLOGICAL Hx Blood Disorders: Yes Hx Anemia: Yes - INTEGUMENTARY Hx Dermatological Problems: No - MUSCULOSKELETAL/RHEUMATOLOGICAL Hx Musculoskeletal Disorders: No - GASTROINTESTINAL Hx Gastrointestinal Disorders: No - GENITOURINARY/GYNECOLOGICAL Hx Genitourinary Disorders: No - PSYCHIATRIC Hx Psychophysiologic Disorder: Yes Hx Anxiety: Yes Hx Bipolar Disorder: Yes Hx Depression: Yes Hx Hallucinations: No Hx Substance Use: No - SURGICAL HISTORY Hx Section: Yes (x2) - ANESTHESIA Hx Anesthesia: Yes Hx Anesthesia Reactions: No Hx Malignant Hyperthermia: No Meds Allergies/Adverse Reactions: Allergies Allergy/AdvReac Type Severity Reaction Status Date / Time No Known Allergies Allergy Verified 09/13/18 23:11 Physical Exam - Constitutional Appears: No Acute Distress - Head Exam Head Exam: ATRAUMATIC, NORMAL INSPECTION - Eye Exam Eye Exam: EOMI Pupil Exam: PERRL - ENT Exam ENT Exam: Mucous Membranes Dry - Respiratory Exam Respiratory Exam: Clear to Auscultation Bilateral. absent: Respiratory Distress - Cardiovascular Exam Cardiovascular Exam: REGULAR RHYTHM, +S1, +S2 - GI/Abdominal Exam GI & Abdominal Exam: Normal Bowel Sounds, Tenderness. absent: Firm, Guarding Additional comments: generalized tenderness - Extremities Exam Extremities exam: Positive for: normal inspection. Negative for: calf tenderness - Back Exam Back exam: NORMAL INSPECTION. absent: CVA tenderness (L), CVA tenderness (R) - Neurological Exam Neurological exam: Alert, Oriented x3 - Skin Skin Exam: Normal Color, Warm Results - Vital Signs Recent Vital Signs: Last Vital Signs Temp 98.6 F 09/13/18 23:27 Pulse 100 H 09/13/18 23:27 Resp 18 09/13/18 23:27 BP 147/80 09/13/18 23:27 Pulse Ox 97 09/13/18 23:27 - Labs Result Diagrams: 09/14/18 00:23 09/14/18 00:23 Labs: Laboratory Results - last 24 hr 09/14/18 09/14/18 09/14/18 00:03 00:23 00:23 WBC 10.7 D RBC 4.40 Hgb 11.0 L Hct 34.4 L MCV 78.2 L MCH 25.0 MCHC 32.0 RDW 13.4 Plt Count 289 MPV 9.6 Gran % 75.5 H Lymph % (Auto) 17.7 L [place] % (Auto) 6.3 H Eos % (Auto) 0.3 L Baso % (Auto) 0.2 Gran # 8.07 H Lymph # (Auto) 1.9 [place] # (Auto) 0.7 H Eos # (Auto) 0.0 Baso # (Auto) 0.02 Sodium 132 Potassium 3.5 L Chloride 87 L Carbon Dioxide 35 H Anion Gap 13 BUN 9 Creatinine 0.4 L Est GFR ( Amer) > 60 Est GFR (Non-Af Amer) > 60 Random Glucose 427 H* Calcium 9.3 Total Bilirubin 1.1 AST 20 ALT 24 Alkaline Phosphatase 178 H Troponin I < 0.01 Total Protein 7.9 Albumin 3.8 Globulin 4.1 Albumin/Globulin Ratio 0.9 L Amylase 48 Lipase 106 Urine Color Yellow Urine Appearance Sl cloudy Urine pH 6.0 Ur Specific [place] 1.010 Urine Protein 100 H Urine Glucose (UA) >=1000 Urine Ketones 15 H Urine Blood Trace-intact H Urine Nitrate Negative Urine Bilirubin Negative Urine Urobilinogen 0.2 Ur Leukocyte Esterase Moderate H Urine RBC 0 - 2 Urine WBC 25 - 30 Ur Epithelial Cells 1 - 3 Urine Bacteria Many Assessment & Plan - Assessment and Plan (Free Text) Assessment: This is a 52 year old female with PMH of DM, HLD, HTN, anxiety disorder, bipolar disorder, diabetic neuropathy, gastroparesis, asthma and recurrent UTI presenting to the hospital for one week history of vomiting, abdominal pain and urinary frequency. Plan: Generalized abdominal pain -concern for cystitis vs pyelonephritis -CTAP showed suspicion for cystitis and ascending urinary tract infection -started on merrum -transvaginal US pending -ID on consult, Dr. Alarcon -U/A showed leuk esterase, many bacteria -procalcitonin pending -NS @ 100cc/hr -reglan, zofran prn -lactic acid pending -blood, urine cultures pending Hx of DM -levemir 40 units HS -insulin lispro high ACHS -hypoglycemia protocol Hx of HTN -continue coreg Hx of HLD -continue lipitor Hx of Anxiety, bipolar -continue cymbalta -Psych on consult, Dr. Cardona PPX with heparin and pepcid Carbohydrate Consistent Diet Patient discussed and plan approved by attending, Dr. Brown <Ryan Brown U - Last Filed: 09/18/18 20:09> Results - Vital Signs Recent Vital Signs: Last Vital Signs Temp 98.6 F 09/17/18 06:00 Pulse 77 09/17/18 09:42 Resp 20 09/17/18 06:00 BP 161/89 H 09/17/18 09:42 Pulse Ox 95 09/17/18 06:00 - Labs Result Diagrams: 09/17/18 07:15 09/17/18 07:15 Labs: Laboratory Results - last 24 hr 09/16/18 09/16/18 09/16/18 06:52 09:07 11:26 POC Glucose (mg/dL) 97 150 H 145 H 09/16/18 09/17/18 09/17/18 16:50 06:08 06:39 POC Glucose (mg/dL) 190 H 74 136 H 09/17/18 11:27 POC Glucose (mg/dL) 209 H Attending/Attestation - Attestation I have personally seen and examined this patient.: Yes I have fully participated in the care of the patient.: Yes I have reviewed all pertinent clinical information: Yes Notes (Text): Please see/read my dictated notes.
[2018-09-14] MEDS ORDERED: Dextrose 50% SYRINGE Inj (50 ml) IV PRN (05:44)
[2018-09-14] MEDS: Sodium Chloride 0.9% 1,000 ML IV SCH ×2 (06:04→21:11)
[2018-09-14] MEDS ORDERED: Potassium Chloride 20 mEq ER Tab PO ONE (08:03)
[2018-09-14] MEDS: Insulin Reg-HIGH-Coverage SC SCH ×4 (08:30→21:23)
[2018-09-14] MEDS: Ergocalciferol 50,000 Intl Units Cap PO SCH (08:39)
[2018-09-14 09:23] LABS: FREE T4 1.55 ng/dL (0.78-2.19); T4 9.2 ug/dL (5.5-11.0)
--- NOTE | 2018-09-14 09:23 | CT ---
Date of service: 09/14/2018 PROCEDURE: CT Abdomen and Pelvis without intravenous contrast HISTORY: abd pain COMPARISON: None. TECHNIQUE: Technique. Contrast dose: Radiation dose: Total exam DLP = 976.43 mGy-cm. This CT exam was performed using one or more of the following dose reduction techniques: Automated exposure control, adjustment of the mA and/or kV according to patient size, and/or use of iterative reconstruction technique. FINDINGS: LOWER THORAX: Unremarkable. LIVER: Unremarkable. No gross lesion or ductal dilatation. GALLBLADDER AND BILE DUCTS: Unremarkable. PANCREAS: Unremarkable. No gross lesion or ductal dilatation. SPLEEN: Unremarkable. ADRENALS: Unremarkable. No mass. KIDNEYS AND URETERS: Minimal perinephric fat infiltration involving the left kidney which could represent underlying mild pyelonephritis. VASCULATURE: Unremarkable. No aortic aneurysm. No aortic atherosclerotic calcification or mural plaque present. BOWEL: Unremarkable. No obstruction. No gross mural thickening. APPENDIX: Unremarkable. Normal appendix. PERITONEUM: Unremarkable. No free fluid. No free air. LYMPH NODES: Unremarkable. No enlarged lymph nodes. BLADDER: Unremarkable. REPRODUCTIVE: Unremarkable. BONES: No acute fracture. OTHER FINDINGS: None. IMPRESSION: Minimal perinephric fat infiltration involving the left kidney which could represent underlying mild pyelonephritis.
[2018-09-14] MEDS ORDERED: MEROPENEM 500 MG in NS 500 MG/50 ML BAG IVPB SCH (10:00)
--- NOTE | 2018-09-14 10:06 | CP.PCM.PCO ---
Physician Communication Note - Physician Communication Note Physician Communication Note: pt went to the test, discussed with RN, no acute issues, will f/u later
--- NOTE | 2018-09-14 10:41 | US ---
Date of service: 09/14/2018 HISTORY: abdominal pain, diffuse COMPARISON: 07/24/2016. TECHNIQUE: Transvaginal pelvic ultrasound was performed. FINDINGS: UTERUS: Measures 8.5 x 3.9 x 5.9 cm. Anteverted and bulky. There is a 1 5 x 0.9 x 1.2 cm intramural posterior wall fibroid in the midbody of the uterus. ENDOMETRIUM: The central endometrial echo complex is thick, heterogeneous and has cystic areas. It measures 10 mm, thickened for postmenopausal status however unchanged in appearance since the prior examination. CERVIX: No cervical abnormality identified. RIGHT OVARY: Measures 1.5 x 1.7 x 2.6 cm. No solid mass. Normal flow. LEFT OVARY: Not visualized. FREE FLUID: No significant free fluid noted. OTHER FINDINGS: None. IMPRESSION: Solitary 1.5 x 0.9 x 1.2 cm posterior wall intramural fibroid in the midbody of the uterus. Stable thick, heterogeneous central endometrial echo complex with internal cystic areas. Findings could be related to endometrial hyperplasia however carcinoma is also a differential consideration. Clinical follow-up is advised.
--- NOTE | 2018-09-14 10:59 | CARD ---
APPROVED REPORT Date of service: 09/14/2018 EKG Measurement Heart [id number] <Conclusion> Normal sinus rhythm LAD NSSTW changes Prolonged QTc No change
[2018-09-14] MEDS: cefTRIAXone 1 gm 1 GM/100 ML BAG IVPB SCH (12:18)
[2018-09-14] MEDS: POLYETHYLENE GLYCOL 3350 17 GM/Dose PACKET PO SCH ×2 (12:18→18:43)
--- NOTE | 2018-09-14 17:37 | CON ---
DATE OF CONSULTATION: 09/14/2018 The patient is seen in Room 570, Bed 2. CHIEF COMPLAINT: Abdominal pain for several days. HISTORY OF PRESENT ILLNESS: This is a 52-year-old female with hypertension, diabetes, gastroparesis, hyperlipidemia, bipolar, fibroids, multiple urinary tract infections, asthma, depression, history of inguinal abscess, who had visited the emergency room on 09/07/2018, had complained of urinary symptoms and was given Keflex for urinary tract infection. However, she never even picked up the prescription, now returns with abdominal pain, dysuria, frequency, low-grade fevers. PAST MEDICAL HISTORY: Significant for diabetes, hypertension, gastroparesis, hyperlipidemia, bipolar, fibroid uterus, urinary tract infections times multiple episodes, depression, asthma, inguinal abscess, pancreatitis and GERD. PAST SURGICAL HISTORY: Significant for and tubal ligation. MEDICATIONS AT HOME: Metformin, Protonix, insulin and Cymbalta. The patient is given Keflex in the emergency room, but the patient never picked it up. She is on Lipitor. ALLERGIES: THE PATIENT HAS NO ALLERGIES TO ANY ANTIBIOTICS. REVIEW OF SYSTEMS: No chest pain or shortness of breath. No headaches or blurred vision. No neck pain or back pain. No rash. No new joint pain. PHYSICAL EXAMINATION: The patient is in bed, in no acute distress, comfortable with a temperature of 98, heart rate of 100, respiratory rate of 18 and blood pressure is 140/80. Exam of HEENT is unremarkable. Neck is supple. Lungs have decreased breath sounds. Heart exam, normal S1 and S2. Abdominal examination is soft and nontender. No organomegaly, no rebound, no guarding, no masses. No CVA tenderness. LABORATORY EXAMINATION: Reveals a white count of 10,000, hemoglobin of 11, and platelets of 289. BUN of 9, creatinine of 0.4. Alk phos is 178. Urinalysis: Moderate leukocyte esterase and 25 to 30 wbc's, many bacteria. ASSESSMENT AND PLAN: This is a 52-year-old female with diabetes, hypertension, gastroparesis, hyperlipidemia, pancreatitis, gastroesophageal reflux disease, urinary tract infection, depression and asthma, now presenting with epigastric pain. 1. Urinary tract infection with cystitis. Because of dysuria and frequency, we also must consider gallbladder disease. We will start the patient on ceftriaxone and order an abdominal ultrasound, blood cultures and urine cultures. Because of the patient's age, we will order an HIV 4th generation. We will make further recommendations upon availability of initial results and culture results and treat her with ceftriaxone. We will discontinue the meropenem, no real reason, since the patient was not taking any antibiotics and not concerned about nosocomial. We will make further recommendations. We will follow with you. We will review the CAT scan also. Hayes Alarcon MD
[2018-09-14] MEDS: Enoxaparin 40 mg Syringe SC SCH (18:44)
[2018-09-14] MEDS ORDERED: Insulin Detemir 100 units/ml Vial (Levemir) SC SCH (22:00)
--- NOTE | 2018-09-15 05:02 | HP ---
DATE OF EXAM: 09/14/2018 HISTORY OF PRESENT ILLNESS: The patient is a 52-year-old morbidly obese, extremely noncompliant female, presented to the emergency room complaining of abdominal pain, nausea and vomiting for 1 week. The patient came to the emergency room as ambulatory walk-in. The patient was seen in the office recently, the patient was advised again, where the patient was found to have not been taking her medications after we discovered from the pharmacy that the patient has not picked up multiple refills of her medications and the insulin. The patient was sees seen a few days ago for similar symptoms on 09/07/2018. After that, the patient was seen in the office after the ER visit. The patient's all medications were refilled, but the patient did not chicken picker her insulin and all the medications and it appears that the patient is not taking her medications which has been prescribed including insulin and including Victoza. According to the ER physician's evaluation, the patient presented with nausea, multiple episodes of vomiting, diffuse abdominal pain. Denies chest pain. Denies hemoptysis, hematemesis or melena. The patient was unable to eat or keep her food down because of nausea. REVIEW OF SYSTEMS: A 14-system . CODE STATUS: FULL CODE. LIVING WILL ADVANCE DIRECTIVE: None. ALLERGIES: NONE. Height is 5 feet 1 inch. Weight is 188. BMI 36. HOME MEDICATIONS: Janumet twice a day, Protonix 40 mg daily, magnesium oxide 400 twice a day, Victoza 1.8 mg subcu daily, Levemir 60 units twice a day, Vascepa 2 capsules twice a day, folic acid 1 mg daily, Advair Diskus 50/500 twice a day, Drisdol 50,000 units three times a week, Cymbalta 60 mg daily, Coreg either 25 or 3.125 twice a day, Tessalon Perles and Lipitor 40 mg daily. SOCIAL HISTORY The patient denies smoking, alcohol use or substance abuse. Denies any communicable or transmissible disease. OCCUPATIONAL HISTORY: The patient is an disabled female. FAMILY HISTORY: Positive for diabetes, positive for hypertension, positive for obesity, positive for coronary artery disease, positive for cerebral infarct, positive for noncompliance. PAST MEDICAL AND SURGICAL HISTORY: History of morbid obesity; history of extremely poor compliance; history of extreme noncompliance; history of degenerative joint disease of the knees, spine, hips and ankles; history of insulin-requiring diabetes mellitus; history of hypomagnesemia; history of hypertriglyceridemia; history of depression and anxiety; history of hypovitaminosis D; history of hyperlipidemia; history of diabetic neuropathy. The patient's past medical history is also significant for hypertension, history of type 1 insulin-requiring diabetes mellitus, history of gastroesophageal reflux, history of gastroparesis, history of bipolar disorder, and the patient stopped taking all her antipsychotic medications, history of , history of tubal ligation, history of atypical chest pain, history of fibroid uterus, history of endometrial thickening, history of hepatic steatosis and fatty liver, history of hepatomegaly, history of negative stress test with ejection fraction of 53% with normal gated wall motion, history of hypertensive cardiovascular disease, history of left ventricular ejection fraction of 50-55%, history of myocardial stress test in 2012 and 2014 without any ischemia. Past medical history is also significant for history of gastritis, history of diabetic gastroparesis, history of severe dietary and medication noncompliance,history of former nicotine dependence, history of recurrent urinary tract infections, history of asthma, history of groin abscess, history of trichomoniasis, history of constipation and fecal stasis. PAST PSYCHIATRIC HISTORY As above. FAMILY HISTORY: As dictated above. PHYSICAL EXAMINATION: GENERAL: The patient was seen and evaluated. VITAL SIGNS: T-max 99.1; heart rate is 100, 91, 80, 101; blood pressure is 150/70, 144/72, 140/78, 147/70; respiration 18-20; O2 sat 93-98%. HEENT: The patient's head examination normocephalic, atraumatic. HEENT examination shows pinkish pale conjunctivae. Dry oral mucosa. NECK: No neck rigidity. CHEST: Examination symmetrical. LUNGS: Examination shows no rales, crackles or wheezing. CARDIOVASCULAR: Shows S1, S2, regular rhythm. At present, no audible murmur, gallop or rub. ABDOMEN: Morbidly obese. Positive epigastric periumbilical tenderness. No rebound tenderness. No guarding. No rigidity. No rebound tenderness. No palpable organomegaly appreciated because of obesity. GENITALIA: Female. RECTAL: Examination is deferred. EXTREMITY: Shows no pitting edema, no calf tenderness, no Jennifer's signs. NEUROLOGIC: The patient is alert, awake and oriented x3. Cranial nerves II-XII intact. Gait examination is independent. MUSCULOSKELETAL: Examination shows an elevated body mass index of 36. DIAGNOSTICS: WBC 10.7, hemoglobin and hematocrit 11 and 34.4, platelet 289, granulocytes 75. ESR is 130. The patient's CMP, LFTs were ordered. Sodium 132, potassium 3.5, chloride 87, CO2 of 35, anion gap 13, BUN 9, creatinine 0.4. GFR greater than 60. Glucose 427, hemoglobin A1c 13.3. Lactic acid was 1.2, calcium 9.3, phosphorus 3.5, magnesium 2.0, alk phos 178. Troponin is negative. C-reactive protein greater than 15. Triglyceride 266, cholesterol 193, LDL 144, HDL 21. Amylase and lipase were normal. Procalcitonin level 0.41. TSH is slightly low at 0.33. Vitamin D 25-hydroxy less than 12.8. Urine pH 6.0, specific gravity 1.010, protein 100, glucose greater than 1000, 15 ketones, trace blood, moderate leukocyte, 25-30 wbc's, many bacteria. The patient imaging, which was done in the emergency room including CT of the abdomen and later on the patient had a transvaginal ultrasound, CT of the abdomen and pelvis report was reviewed. The patient's EKG was done in the emergency room which was reviewed, which was normal sinus rhythm. The patient was seen and evaluated in the emergency room by the ER physician. The patient was given Zofran 4 mg x2 doses, IV fluid 0.9 normal saline bolus, Rocephin 1 g was given, Reglan 5 mg was given, and the patient was advised to be admitted. IMPRESSION: 1. Severely symptomatic diabetic gastroparesis with abdominal pain and nausea and vomiting. 2. Tachycardia. 3. Extremely poor dietary and medication noncompliance. 4. Normocytic anemia with granulocytosis. 5. Elevated erythrocyte sedimentation rate. 6. Uncontrolled diabetes mellitus with hyperglycemia. 7. Uncontrolled insulin-requiring diabetes mellitus with hyperglycemia and hemoglobin A1c of 13.3. 8. Hypokalemia. 9. Elevated C-reactive protein of greater than 15. 10. Hypertriglyceridemia, hyperlipidemia with elevated LDL and decreased HDL. 11. Hypovitaminosis D. 12. Questionable urinary tract infection with proteinuria, pyuria, microscopic hematuria, bacteriuria. 13. Questionable left-sided pyelonephritis with left renal perinephric fat infiltration with mild left-sided pyelonephritis. 14. Morbid obesity. 15. Thickened endometrial lining with heterogenicity in cystic areas. 16. Uterine fibroid. 17. Thickened heterogeneous endometrium echo complex with internal cystic areas. 18. Hypertension. 19. Possible urinary tract infection with cystitis. PLAN: At this time, the patient is to be admitted to [facility]. Blood and urine cultures ordered, serial labs ordered. Current consultations, Infectious Disease and Psychiatry. training assistant ordered. TCU evaluation ordered. The patient has been ordered Colace 100 three times a day, Coreg 25 twice a day, Cymbalta 60 mg at bedtime, Drisdol 50,000 units 3 times a week, Ecotrin 81 mg daily, folic acid 1 mg daily, Humulin R regular dose sliding scale coverage a.c. and at bedtime, K-Dur 40 mEq was given for hypokalemia, Levemir started at 60 units with breakfast, Lipitor 80 mg daily, Lovenox 40 mg subcu daily, MiraLax 17 g twice a day, Pepcid 20 mg twice a day, Reglan 10 mg IV every six hours, Rocephin 1 g IV daily, IV fluid 0.9 normal saline at 100 mL an hour, Tylenol p.r.n., Zofran 4 mg IV every four hours p.r.n. Consistent carbohydrate diet, head of the bed at 30 degrees, out of bed, JESSICA stockings, SCDs, occupational and physical therapy ordered. At present, the patient's further management will be dependent upon the patient's clinical condition, hemodynamic status and as per the patient's response to therapeutic intervention, as per the patient's diagnostic test results and as per recommendations by all the physicians involved in the care of the patient. Dictated and electronically signed, not read. Ryan Brown MD
[2018-09-15 07:34] LABS: BASO # 0.01 K/mm3 (0.0-2.0); BASO % 0.1 % (0.0-3.0); EOS % 0.5 % (1.5-5.0); GRAN # 5.18 (1.4-6.5); HEMOGLOBIN 9.8 g/dL (12.0-16.0); LYMPH # 1.8 (1.2-3.4); LYMPH % 23.6 % (22.0-35.0); MEAN CORPUSCULAR HEMOGLOBIN 24.8 pg (25.0-35.0); MEAN CORPUSCULAR HGB CONC 31.4 g/dl (31.0-37.0); MEAN PLATELET VOLUME 9.8 fl (7.0-11.0); MONO # 0.4 (0.1-0.6); MONO % 5.8 % (1.0-6.0); RBC 3.95 10^6/uL (3.5-6.1); RED CELL DISTRIBUTION WIDTH 13.5 % (11.5-14.5); WHITE BLOOD COUNT 7.4 10^3/uL (4.5-11.0)
[2018-09-15] MEDS: Insulin Reg-HIGH-Coverage SC SCH ×4 (08:02→21:33)
[2018-09-15 08:05] LABS: ALB/GLOB RATIO 0.8 (1.1-1.8); ALBUMIN 3.3 g/dL (3.0-4.8); ALT/SGPT 24 U/L (7-56); AST/SGOT 24 U/L (14-36); BILIRUBIN,DIRECT 0.4 mg/dL (0.0-0.4); BLOOD UREA NITROGEN 7 mg/dL (7-21); CALCIUM 8.6 mg/dL (8.4-10.5); GFR NON-AFRICAN AMERICAN > 60
[2018-09-15] MEDS: Potassium Chloride 20 mEq ER Tab PO SCH ×2 (08:59→11:43)
[2018-09-15] MEDS: Insulin Detemir 100 units/ml Vial (Levemir) SC SCH (08:59)
[2018-09-15] MEDS: POLYETHYLENE GLYCOL 3350 17 GM/Dose PACKET PO SCH ×3 (09:50→17:15)
[2018-09-15] MEDS: Enoxaparin 40 mg Syringe SC SCH (09:50)
[2018-09-15] MEDS: Sodium Chloride 0.9% 1,000 ML IV SCH ×2 (09:51→21:32)
[2018-09-15] MEDS: cefTRIAXone 1 gm 1 GM/100 ML BAG IVPB SCH (09:51)
--- NOTE | 2018-09-15 09:59 | RAD ---
HISTORY: FEVER COMPARISON: Chest x-ray performed 09/07/18 TECHNIQUE: Chest PA and lateral FINDINGS: Examination limited by habitus. LUNGS: No focal consolidation. Please note that chest x-ray has limited sensitivity for the detection of pulmonary masses. PLEURA: No significant pleural effusion identified. No definite pneumothorax . CARDIOVASCULAR: Borderline cardiomegaly. Faint atherosclerotic calcification present. OSSEOUS STRUCTURES: Degenerative changes of the spine. VISUALIZED UPPER ABDOMEN: Unremarkable. OTHER FINDINGS: None. IMPRESSION: No focal consolidation, significant pleural effusion, or definite pneumothorax identified.
--- NOTE | 2018-09-15 11:56 | PN ---
DATE: 09/15/2018 SUBJECTIVE: The patient is in bed, in no acute distress. PHYSICAL EXAMINATION: VITAL SIGNS: On exam, temperature is 100, respiratory rate of 18, heart rate of 98. HEENT: Examination of HEENT is unremarkable. NECK: Supple. LUNGS: Have decreased breath sounds. HEART: Normal S1, S2. ABDOMEN: Soft. LABORATORY DATA: Laboratory examination reveals a white count of 7.4, hemoglobin of 9, platelets of 287. Sed rate is 130, BUN of 7, creatinine of 0.7. Urinalysis is noted. 25-30 wbc's, many bacteria. Urine cultures are gram-negative rods. Blood cultures are negative. The patient had a chest x-ray. No focal consolidation. ASSESSMENT AND PLAN: A 52-year-old female with diabetes mellitus, hypertension, gastroparesis, hyperlipidemia, pancreatitis, gastroesophageal reflux disease, urinary tract infection, depression, asthma, presenting with gram-negative coral cystitis and with low-grade fevers, tachycardia with a CAT scan that was consistent with a left pyelonephritis with gram-negative coral. Awaiting for identification and sensitivity. Currently on ceftriaxone. Will check on the identification and sensitivity of gram-negative coral. May need to upgrade the antibiotics because of the persistent low-grade fevers. Hayes Alarcon MD
--- NOTE | 2018-09-15 14:00 | US ---
Date of service: 09/14/2018 HISTORY: elevated alk phos COMPARISON: None. TECHNIQUE: Sonographic evaluation of the abdomen. FINDINGS: LIVER: Measures 16.8 cm. Diffusely increased echogenicity of the liver parenchyma. Consistent with fatty infiltration. No mass. Smooth contour. No biliary dilatation. GALLBLADDER: No cholelithiasis. No mural thickening. No pericholecystic fluid. COMMON BILE DUCT: Measures 5 mm. No stones. No dilatation. PANCREAS: Unremarkable as visualized. No mass. No ductal dilatation. RIGHT KIDNEY: Measures 12.1cm. Normal echogenicity. No calculus, mass, or hydronephrosis. LEFT KIDNEY: Measures 12.2cm. Normal echogenicity. No calculus, mass, or hydronephrosis. SPLEEN: Normal in size and contour. No mass. AORTA: No aneurysmal dilatation. IVC: Unremarkable. OTHER FINDINGS: None. IMPRESSION: Fatty infiltration of the liver. No evidence of biliary obstruction. No evidence of cholelithiasis.
--- NOTE | 2018-09-15 23:41 | CON ---
DATE: 09/15/2018 CONSULTATION NOTE HISTORY OF PRESENT ILLNESS: The patient is a 52-year-old female with multiple medical issues, hypertension, hyperlipidemia, questionable history of bipolar disorder, insulin-dependent diabetes, diabetic neuropathy, gastroparesis, recurrent urinary tract infection. The patient was admitted on the medical site for vomiting and diffuse abdominal pain. Psych consult was called because the patient has history of mental illness. The patient was seen and examined today. The patient presented to be well. Denied that she has any depressive symptoms. Denied any thoughts of harming herself or others. Denied feeling anxious. The patient denied hearing voices, denied seeing things, denied paranoid ideations. The patient said that she was not taking any psychotropic medications and she was doing well. The patient reported that her family is supportive. Her family is there for her. Discussed with Dr. Brown today. As per Dr. Brown, the patient has chronic noncompliance with the medications and followup appointments. The patient multiple times was educated about importance to be compliant with all of the medication regimen, but the patient seems to be poorly reliable in regards of med management. Going back to the patient's presentation, the patient presented well, comfortable. As per nursing report, the patient does not exhibit any aggressive or agitative behavior. The patient herself said that her abdominal pain is much better. The patient expressed no concerns. The patient said that she does not want to follow up with outpatient psychiatrist. The patient reported that she has future oriented plans. Does not present to be psychotic or disorganized. VITAL SIGNS: Reviewed. The patient had fever of 100, pulse is 90, blood pressure 133/80, respirations 18, oxygen saturation is 95. MEDICATIONS: Reviewed. Tylenol, aspirin, Lipitor, Coreg, Rocephin, dextrose, Colace, Lovenox, Drisdol, Pepcid, folic acid, Levemir, Humulin, Reglan, Zofran, MiraLAX, sodium chloride. Medical team started the patient on Cymbalta 60 mg, but the patient said that she was not taking that medication and that is why we will hold that medication. LABORATORY DATA: Labs reviewed. Chemistry reviewed. Urinalysis reviewed. Leukocyte esterase is moderate. Serology reviewed. Microbiology reviewed. Gram-negative rods in the urine. MENTAL STATUS EXAMINATION: As this selling underwriter described above, the patient presented well, alert and oriented, pleasant, cooperative. There is mild cognitive limitation and very concrete thought process. Mood described as "I am feeling fine, I feel okay". Affect was reactive. Mood congruent. Thought process coherent, goal directed. Thought content, the patient denied visual, auditory, tactile hallucinations. Denied paranoid ideation. The patient denied thoughts of harming herself or others. Denied intent or plan. Insight and judgment seems to be limited in regards of medication compliance, but overall the patient does not present to be psychotic or agitated. Impulses are well controlled. IMPRESSION: As per history, bipolar disorder, but this is questionable, multiple medical issues. PLAN: This selling underwriter will hold Cymbalta because the patient might be noncompliant with the medication and if it will be stopped abruptly, most likely the patient would be not tolerating that well. The patient was advised to continue with medical regimens as of now. The patient expressed no concerns about her followup appointment with outpatient psychiatrist. The patient does not want to have any referral. The patient reported to have supportive family. The patient posed no imminent danger to self or others. Should you have any questions, give me a call back. Dulce Patiño MD
[2018-09-16 07:50] LABS: BASO # 0.01 K/mm3 (0.0-2.0); BASO % 0.1 % (0.0-3.0); EOS # 0.1 (0.0-0.7); EOS % 1.7 % (1.5-5.0); GRAN # 4.57 (1.4-6.5); GRAN % 60.4 % (50.0-68.0); HEMOGLOBIN 9.6 g/dL (12.0-16.0); LYMPH # 2.6 (1.2-3.4); LYMPH % 33.8 % (22.0-35.0); MEAN CELL VOLUME 78.9 fl (80.0-105.0); MEAN CORPUSCULAR HEMOGLOBIN 24.4 pg (25.0-35.0); MEAN CORPUSCULAR HGB CONC 30.9 g/dl (31.0-37.0); MEAN PLATELET VOLUME 9.6 fl (7.0-11.0); MONO # 0.3 (0.1-0.6); RBC 3.94 10^6/uL (3.5-6.1); RED CELL DISTRIBUTION WIDTH 13.3 % (11.5-14.5); WHITE BLOOD COUNT 7.6 10^3/uL (4.5-11.0)
[2018-09-16 08:42] VITALS: RESP 20
[2018-09-16 08:48] LABS: ALB/GLOB RATIO 0.9 (1.1-1.8); ALBUMIN 3.3 g/dL (3.0-4.8); ALT/SGPT 32 U/L (7-56); AST/SGOT 38 U/L (14-36); BILIRUBIN,DIRECT 0.4 mg/dL (0.0-0.4); BLOOD UREA NITROGEN 6 mg/dL (7-21); CALCIUM 8.9 mg/dL (8.4-10.5); GFR NON-AFRICAN AMERICAN > 60
[2018-09-16] MEDS: Insulin Reg-HIGH-Coverage SC SCH ×4 (08:58→22:32)
[2018-09-16] MEDS: cefTRIAXone 1 gm 1 GM/100 ML BAG IVPB SCH (10:32)
[2018-09-16] MEDS: Enoxaparin 40 mg Syringe SC SCH (10:34)
[2018-09-16] MEDS: POLYETHYLENE GLYCOL 3350 17 GM/Dose PACKET PO SCH ×2 (10:34→18:01)
[2018-09-16] MEDS: Insulin Detemir 100 units/ml Vial (Levemir) SC SCH (10:35)
--- NOTE | 2018-09-16 12:40 | PN ---
DATE: 09/16/2018 SUBJECTIVE: The patient is in bed, in no acute distress, nontoxic. PHYSICAL EXAMINATION: VITAL SIGNS: Temperature is 98, blood pressure is 120/70, respiratory rate of 18. HEENT: Unremarkable. NECK: Supple. LUNGS: Have decreased breath sounds. LABORATORY EXAMINATION: Reveals a white count of 7.6, hemoglobin of 9. Chemistries are noted. Urinalysis is noted. Serology, HIV is negative. Microbiology reveals Klebsiella pneumoniae. It is pansensitive. The patient does not have any allergies. Review of medications at home are noted. Review of the EKG here QTc of 469. ASSESSMENT AND PLAN: A 52-year-old female with diabetes mellitus, hypertension, gastroparesis, hyperlipidemia, pancreatitis and gastroesophageal reflux disease with depression, history of urinary tract infection, asthma, admitted on this admission with pansensitive Klebsiella pneumoniae. Left-sided pyelonephritis. She is able to switch to p.o. antibiotics to complete 10-14 days. The patient is tolerating her medications. She has been afebrile over 24 hours. We will discuss with PMD. Currently, the patient is on ceftriaxone and may use p.o. cephalosporins and/or since she is pansensitive, only resist the ampicillin. It is sensitive to cefazolin, cefepime, ceftriaxone, Cipro, ertapenem and nitrofurantoin. From Infectious Disease point of view, maybe discharged on p.o. antibiotics to complete 10-14 days. Hayes Alarcon MD
--- NOTE | 2018-09-16 12:56 | PN ---
DATE: 09/15/2018 SUBJECTIVE: The patient is seen and examined in room 570, bed 2. The patient has been out of bed. Patient is seen sitting up in the chair watching TV. The patient does not appear to be in any distress. The patient denies any abdominal pain. Denies any vomiting, diarrhea. Denies any hemoptysis, hematemesis, melena. Complained of fever and chills. PHYSICAL EXAMINATION: VITAL SIGNS: T-max 100 degrees Fahrenheit, heart rate 98-101, respirations 18, O2 sat 95%, blood pressure 123/75. HEENT: Head examination normocephalic, atraumatic. HEENT examination shows pinkish pale conjunctivae. Dry oral mucosa. NECK: No neck rigidity. CHEST: Kyphosis. LUNGS: Shows no rales, crackles or wheezing. CARDIOVASCULAR: S1 and S2. Regular rhythm. ABDOMEN: Soft, obese, protuberant. Positive bowel sounds. Mild epigastric, periumbilical tenderness. Questionable bilateral costovertebral angle tenderness. GENITALIA: Female. RECTAL: Deferred. EXTREMITY: Shows no pitting edema, no calf tenderness, no Homans' sign. MUSCULOSKELETAL: Shows an elevated body mass index for stated age and height. VASCULAR: Palpable pulses. PSYCHIATRIC: Negative for anxiety, depression. Negative for suicidal or homicidal ideation. Negative for auditory or visual hallucination. DIAGNOSTICS: On 09/15/2018, WBC 7.4, hemoglobin and hematocrit 9.8 and 31.2, platelets 287. Granulocytes 70% segs. ESR is 130. Sodium 135, potassium 3, chloride 92, CO2 of 38, BUN 7, creatinine 0.3, glucose 282, calcium 8.6, phosphorus 3.5, magnesium 2. Fingerstick blood sugar 250, 292, 205, 283. Cardiac C-reactive protein greater than 267, hemoglobin A1c 13.3, fructosamine 390, homocysteine 15.9. Ultrasound of the liver shows hepatomegaly, increased gallbladder wall thickness. No pericholecystic fluid noted. Urine culture shows gram-negative coral. IMPRESSION AND PLAN: 1. New fever. 2. Tachycardia. 3. Gram-negative coral left pyelonephritis and urinary tract infection and cystitis. 4. Normocytic anemia. 5. Elevated erythrocyte sedimentation rate of 130. 6. Granulocytosis. 7. Hypokalemia. 8. Severe symptomatic diabetic gastroparesis. 9. History of longstanding noncompliance and poor compliance with medication and diet. 10. Elevated cardiac C-reactive protein of greater than 267 and elevated high sensitivity C-reactive protein of greater than 15. 11. Uncontrolled insulin-requiring diabetes mellitus with hemoglobin A1c of 13.3 and fructosamine of 390. 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 13. Hepatomegaly with hepatic steatosis and gallbladder wall thickening. 14. History of hypertension. 15. History of hyperlipidemia, severe hypertriglyceridemia. 16. Hypovitaminosis D. 17. Morbid obesity. 18. Severe longstanding dietary and medication noncompliance. 1. Severely symptomatic diabetic gastroparesis with abdominal pain and nausea and vomiting. 2. Tachycardia. 3. Extremely poor dietary and medication noncompliance. 4. Normocytic anemia with granulocytosis. 5. Elevated erythrocyte sedimentation rate. 6. Uncontrolled diabetes mellitus with hyperglycemia. 7. Uncontrolled insulin-requiring diabetes mellitus with hyperglycemia and hemoglobin A1c of 13.3. 8. Hypokalemia. 9. Elevated C-reactive protein of greater than 15. 10. Hypertriglyceridemia, hyperlipidemia with elevated LDL and decreased HDL. 11. Hypovitaminosis D. 12. Questionable urinary tract infection with proteinuria, pyuria, microscopic hematuria, bacteriuria. 13. Questionable left-sided pyelonephritis with left renal perinephric fat infiltration with mild left-sided pyelonephritis. 14. Morbid obesity. 15. Thickened endometrial lining with heterogenicity in cystic areas. 16. Uterine fibroid. 17. Thickened heterogeneous endometrium echo complex with internal cystic areas. 18. Hypertension. 19. Possible urinary tract infection with cystitis. Plan at this time, the patient will be ordered a stat chest x-ray. Blood cultures, urine cultures will be ordered for investigation into new fever. The patient will be continued on IV antibiotic as per Infectious Disease recommendation. The patient's potassium supplementation has been ordered. The patient has been started on folic acid 1 mg p.o. daily and Ecotrin 81 mg daily. The patient's Levemir basal insulin is increased to 60 units at bedtime once a day. The patient is also continued on high-dose sliding scale coverage. The patient was educated about the patient's diagnoses, test results. The patient was advised about strict compliance with diet and medication. The patient was explained about the consequences of her medical condition including cardiovascular compromise and renal compromise, renal failure, loss of vision, loss of sight, loss of limbs, dialysis, cerebral and coronary complications and consequences were explained to the patient in layman's language. All questions concerned was answered, which she understood and acknowledged. The patient's current medications will be continued as per the MAR of today, which was reviewed and updated. The patient was seen by the psychiatrist, recommend discontinuation of Cymbalta as the patient has been noncompliant with all the medication. At present, as per Psychiatry, the patient does not have any active psychiatric illnesses and issues. Dictated and electronically signed, not read. Ryan Brown MD MTDD
[2018-09-17] MEDS: Ergocalciferol 50,000 Intl Units Cap PO SCH (06:02)
[2018-09-17 07:50] LABS: BASO # 0.01 K/mm3 (0.0-2.0); BASO % 0.2 % (0.0-3.0); EOS # 0.1 (0.0-0.7); EOS % 1.4 % (1.5-5.0); GRAN # 4.02 (1.4-6.5); GRAN % 63.9 % (50.0-68.0); HEMOGLOBIN 9.8 g/dL (12.0-16.0); LYMPH # 1.8 (1.2-3.4); LYMPH % 29.1 % (22.0-35.0); MEAN CORPUSCULAR HEMOGLOBIN 24.7 pg (25.0-35.0); MEAN CORPUSCULAR HGB CONC 31.3 g/dl (31.0-37.0); MEAN PLATELET VOLUME 9.7 fl (7.0-11.0); MONO # 0.3 (0.1-0.6); MONO % 5.4 % (1.0-6.0); RBC 3.96 10^6/uL (3.5-6.1); RED CELL DISTRIBUTION WIDTH 13.5 % (11.5-14.5); WHITE BLOOD COUNT 6.3 10^3/uL (4.5-11.0)
[2018-09-17] MEDS: Insulin Reg-HIGH-Coverage SC SCH ×2 (08:00→11:56)
[2018-09-17 08:01] LABS: ALB/GLOB RATIO 0.9 (1.1-1.8); ALBUMIN 3.4 g/dL (3.0-4.8); ALT/SGPT 33 U/L (7-56); AST/SGOT 40 U/L (14-36); BILIRUBIN,DIRECT 0.2 mg/dL (0.0-0.4); BLOOD UREA NITROGEN 6 mg/dL (7-21); CALCIUM 9.1 mg/dL (8.4-10.5); GFR NON-AFRICAN AMERICAN > 60
[2018-09-17] MEDS: Insulin Detemir 100 units/ml Vial (Levemir) SC SCH (08:01)
[2018-09-17 08:58] VITALS: TEMP 98.6; O2SAT 95
[2018-09-17] MEDS: cefTRIAXone 1 gm 1 GM/100 ML BAG IVPB SCH (09:41)
[2018-09-17] MEDS: Enoxaparin 40 mg Syringe SC SCH (09:42)
[2018-09-17] MEDS: POLYETHYLENE GLYCOL 3350 17 GM/Dose PACKET PO SCH (09:42)
[2018-09-17 09:45] VITALS: BP 161/89; PULSE 77
[2018-09-17] MEDS: Potassium Chloride 20 mEq ER Tab PO SCH ×2 (11:04→11:56)
--- NOTE | 2018-09-17 13:48 | PN ---
DATE: 09/17/2018 SUBJECTIVE: The patient is in bed, in no acute distress. PHYSICAL EXAMINATION: VITAL SIGNS: On exam, temperature is 98, blood pressure is 160/80, respiratory rate of 18. HEENT: Examination of HEENT is unremarkable. NECK: Supple. LUNGS: Have decreased breath sounds. HEART: Normal S1, S2. ABDOMEN: Soft, nontender. LABORATORY DATA: Laboratory examination reveals a white count of 6.3, hemoglobin of 9. Chemistries are noted. Urinalysis is reviewed. Serology is reviewed. Microbiology reveals the patient's urine culture is Klebsiella in the urine, pansensitive, sensitive to ceftriaxone, sensitive to Cipro, sensitive to Bactrim. Review of orders reveals the patient to be on ceftriaxone. ASSESSMENT AND PLAN: A 52-year-old female with diabetes mellitus, hypertension, gastroparesis, hyperlipidemia, pancreatitis, gastroesophageal reflux disease with depression, history of urinary tract infection, asthma, admitted with pansensitive Klebsiella pneumonia with left-sided pyelonephritis, on ceftriaxone. Maybe able to switch to p.o. Cipro to complete 10-14 days of total therapy, Cipro 500 mg p.o. b.i.d.. The patient is doing well and we will switch to p.o. Cipro. The patient has been afebrile for well over 24 hours. Last temperature the patient have was on 09/15/2018, a temperature of 100. The patient's EKG shows a QTC of 469. Cipro 500 mg p.o. b.i.d. x10 days. Hayes Alarcon MD
--- NOTE | 2018-09-18 08:30 | DS ---
FINAL PROGRESS NOTE/DISCHARGE SUMMARY The patient is in room 570, bed 2. Overnight nurse's notes were reviewed. The patient remained stable overnight. The patient was found to be without abdominal pain, nausea or vomiting. PHYSICAL EXAMINATION: VITAL SIGNS: T max 98.6; heart rate 87-83-81; blood pressure 117/88, 149/83; respiration 20; O2 sat 95%. HEENT AND NECK: Head examination normocephalic, atraumatic. HEENT examination shows pinkish pale conjunctivae. Anicteric sclerae. No oropharyngeal lesion. No neck rigidity. CHEST: Kyphosis. LUNGS: Examination shows no rales, crackles or wheezing. CARDIOVASCULAR: S1, S2, regular rhythm. ABDOMEN: Morbidly obese. No palpable hepatosplenomegaly noted. GENITALIA: Female. RECTAL: Examination is deferred. No costovertebral angle tenderness noted today. EXTREMITY: Shows no pitting edema, no calf tenderness, no Homans' sign. NEUROLOGIC: The patient is alert, awake, oriented x3. Cranial nerves II-XII intact. PSYCHIATRIC: Examination is negative for anxiety, depression. Negative for suicidal or homicidal ideation. Negative for auditory or visual hallucination. DIAGNOSTICS: 09/17/2018, WBC 6.3, hemoglobin and hematocrit 9.8 and 31.3, platelets 345. Normal differential. Sodium 141, potassium 3.5, chloride 98, CO2 of 35, anion gap 11, BUN 6, creatinine 0.4, GFR greater than 60, glucose 128, calcium 9.1, phosphorus 4.2, magnesium 2.0. AST 40, alk phos 183. HIV nonreactive. Blood cultures x2 sets negative. Urine culture, pansensitive Klebsiella pneumoniae. FINAL IMPRESSION, PLAN AND DISCHARGE DIAGNOSES: 1. Klebsiella pneumoniae, left pyelonephritis, cystitis and urinary tract infection. 2. Severe symptomatic diabetic gastroparesis with symptoms of abdominal plain, nausea and vomiting, resolved. 3. History of longstanding poor compliance and noncompliance. 4. Morbid obesity with elevated body mass index of 36. 5. Hypertension. 6. Normocytic anemia. 7. Granulocytosis. 8. Elevated erythrocyte sedimentation rate of 130. 9. Hypokalemia. 10. Transaminitis. 11. Uncontrolled insulin-requiring diabetes mellitus with hemoglobin A1c of 13.3 and fructosamine of . 12. Hypertriglyceridemia, hyperlipidemia with elevated LDL, decreased HDL. 13. Elevated C-reactive protein of greater than 15 and elevated cardiac C-reactive protein of greater than 267. 14. Klebsiella pneumoniae, left pyelonephritis, cystitis, urinary tract infection with proteinuria, glycosuria, microscopic hematuria, pyuria, bacteriuria. 15. Degenerative joint disease of the spine. 16. Fatty infiltration of the liver and hepatic steatosis. 17. Uterine fibroid. 18. Thickened endometrial echo complex with heterogeneity and cystic masses. 19. Postmenopausal endometrial thickening, etiology undetermined. 20. Thickened heterogeneous endometrial complex with internal cystic area. 21. Questionable endometrial hyperplasia. 22. Klebsiella pneumoniae left pyelonephritis with perinephric fat infiltration of the left kidney. 23. Longstanding chronic noncompliance and poor compliance with medication, diet and physician followup. 24. Left axis deviation. 25. Questionable history of bipolar disorder. 1. Systemic inflammatory response syndrome with fever. 2. Tachycardia. 3. Klebsiella pneumoniae urinary tract infection, cystitis and left pyelonephritis. 4. Normocytic anemia, anemia of chronic disease. 5. Elevated cardiac C-reactive protein of greater than 267 and elevated high sensitivity C-reactive protein of greater than 50. 6. Hyperhomocystinemia. 7. Uncontrolled insulin-requiring diabetes mellitus with hyperglycemia and elevated hemoglobin A1c of 13.3 and fructosamine of 390. 8. Hepatomegaly with gallbladder thickening. 9. Elevated erythrocyte sedimentation rate of 130. 10. Severely symptomatic diabetic gastroparesis with symptoms of abdominal pain, nausea, vomiting. 11. History of longstanding chronic noncompliance and poor compliance with medication, diet etc. 12. Hypertension. 13. Hyperlipidemia. 14. Hypertriglyceridemia. 15. Hypovitaminosis D. 16. Fibroid uterus. 17. Endometrial thickening, etiology undetermined. 1. New fever. 2. Tachycardia. 3. Gram-negative coral left pyelonephritis and urinary tract infection and cystitis. 4. Normocytic anemia. 5. Elevated erythrocyte sedimentation rate of 130. 6. Granulocytosis. 7. Hypokalemia. 8. Severe symptomatic diabetic gastroparesis. 9. History of longstanding noncompliance and poor compliance with medication and diet. 10. Elevated cardiac C-reactive protein of greater than 267 and elevated high sensitivity C-reactive protein of greater than 15. 11. Uncontrolled insulin-requiring diabetes mellitus with hemoglobin A1c of 13.3 and fructosamine of 390. 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 13. Hepatomegaly with hepatic steatosis and gallbladder wall thickening. 14. History of hypertension. 15. History of hyperlipidemia, severe hypertriglyceridemia. 16. Hypovitaminosis D. 17. Morbid obesity. 18. Severe longstanding dietary and medication noncompliance. 1. Severely symptomatic diabetic gastroparesis with abdominal pain and nausea and vomiting. 2. Tachycardia. 3. Extremely poor dietary and medication noncompliance. 4. Normocytic anemia with granulocytosis. 5. Elevated erythrocyte sedimentation rate. 6. Uncontrolled diabetes mellitus with hyperglycemia. 7. Uncontrolled insulin-requiring diabetes mellitus with hyperglycemia and hemoglobin A1c of 13.3. 8. Hypokalemia. 9. Elevated C-reactive protein of greater than 15. 10. Hypertriglyceridemia, hyperlipidemia with elevated LDL and decreased HDL. 11. Hypovitaminosis D. 12. Questionable urinary tract infection with proteinuria, pyuria, microscopic hematuria, bacteriuria. 13. Questionable left-sided pyelonephritis with left renal perinephric fat infiltration with mild left-sided pyelonephritis. 14. Morbid obesity. 15. Thickened endometrial lining with heterogenicity in cystic areas. 16. Uterine fibroid. 17. Thickened heterogeneous endometrium echo complex with internal cystic areas. 18. Hypertension. 19. Possible urinary tract infection with cystitis. PLAN: At this time, the patient has been ordered potassium supplementation. The patient's current medications are Colace 100 mg three times a day, Coreg 25 mg twice a day, Drisdol 50,000 units every 48 hours, Ecotrin 81 mg daily folic acid 1 mg daily. The patient was given potassium supplementation. The patient is on Levemir 60 units with breakfast, Lipitor 80 mg daily, Lovenox 40 mg subcu daily, MiraLax 17 g twice a day, Pepcid 20 mg twice a day, Rocephin 1 g IV daily, IV fluid 0.9 normal saline, Tylenol p.o. suppository every 6 hours p.r.n., Zofran 4 mg IV every 4 hours p.r.n. At present, the patient was seen and evaluated by the Infectious Disease. Infectious Disease has cleared the patient for discharge. The patient will be discharged home on ciprofloxacin 500 twice a day for 10 more days. The patient is to start on Lipitor 80 mg at bedtime. Tessalon Perles 200 three times a day as needed p.r.n. for cough, Coreg 25 mg twice a day, ciprofloxacin 500 mg twice a day, Drisdol 50,000 units every 48 hours, Advair Diskus 50/500 1 puff daily, folic acid 1 mg daily, Vascepa 2 g twice a day, Levemir 60 units twice a day with breakfast and dinner, Victoza 1.8 mg subcu daily, magnesium oxide 400 mg twice a day, Protonix 40 mg daily and Janumet XR mg twice a day. The patient is to be discharged home today. The patient has been advised discharge followup with Dr. Brown within 1 week and outpatient [facility] followup for evaluation of abnormal transvaginal ultrasound. The patient was advised weight loss about 40 pounds. During this hospitalization, the patient was extensively explained about the details of her medical condition, diagnosis, test results on a daily basis and explained to the patient in layman's language. All questions and concerned answered, which she acknowledged understood. Time spent in the discharge process 45 minutes. Dictated and electronically signed, not read. Ryan Brown MD MTDD
--- NOTE | 2018-09-18 09:03 | PN ---
DATE: 09/16/2018 SUBJECTIVE: The patient is seen out of bed to chair, sitting in the chair in room 570, bed 1, next to the window and talking on the telephone. The patient states that she is feeling significantly better with almost resolved abdominal pain and nausea, vomiting. The patient is tolerating diet. The patient is in the process of having lunch while talking on the phone. The patient's 14-system review was negative for headache, negative for blurred vision, negative for chest pain, negative for shortness of breath, negative for nausea, vomiting, diarrhea, negative for constipation. Negative for fever and chills. PHYSICAL EXAMINATION: VITAL SIGNS: T-max in the last 24 hours is 100 degrees Fahrenheit, down to 98.3, pulse 79, blood pressure 123/75, respiration 20, O2 sat 99%. GENERAL: The patient is seen sitting up in the chair. HEAD: Normocephalic, atraumatic. HEENT examination shows pinkish pale conjunctivae. Anicteric sclerae. No oropharyngeal lesion. No neck rigidity. Dry oral mucosa. CHEST: Kyphosis. LUNGS: Shows no rales, crackles or wheezing. CARDIOVASCULAR: S1, S2, regular rhythm. ABDOMEN: Morbidly obese. No palpable hepatosplenomegaly noted. Questionable bilateral costovertebral angle tenderness, left more than the right, but significantly improved and reduced since admission. GENITALIA: Female. RECTAL: Deferred. EXTREMITIES: Shows no pitting edema, no calf tenderness. No Homans' sign. NEUROLOGIC: The patient is alert, awake, oriented x3, is able to move upper and lower extremity without assistance. Gait examination is independent. Cranial nerves II-XII intact. No neuro deficits noted. VASCULAR: Palpable pulses. PSYCHIATRIC: Negative for anxiety, depression. Negative for auditory visualization. Negative for suicidal or homicidal ideation. DIAGNOSTICS: 09/16/2018: WBC 7.6, hemoglobin/hematocrit 9.6/31.1, platelet 325. Sodium 141, potassium 3.6, chloride 99, CO2 of 34, BUN 6, creatinine 0.4, glucose 98, calcium 8.9, phosphorus 3.7, magnesium 2.1. Cardiac C-reactive protein greater than 267, high sensitivity C-reactive protein greater than 50. Homocysteine is 16. Urine culture final report is growing Klebsiella pneumoniae which is negative ESBL. IMPRESSION AND PLAN 1. Systemic inflammatory response syndrome with fever. 2. Tachycardia. 3. Klebsiella pneumoniae urinary tract infection, cystitis and left pyelonephritis. 4. Normocytic anemia, anemia of chronic disease. 5. Elevated cardiac C-reactive protein of greater than 267 and elevated high sensitivity C-reactive protein of greater than 50. 6. Hyperhomocystinemia. 7. Uncontrolled insulin-requiring diabetes mellitus with hyperglycemia and elevated hemoglobin A1c of 13.3 and fructosamine of 390. 8. Hepatomegaly with gallbladder thickening. 9. Elevated erythrocyte sedimentation rate of 130. 10. Severely symptomatic diabetic gastroparesis with symptoms of abdominal pain, nausea, vomiting. 11. History of longstanding chronic noncompliance and poor compliance with medication, diet etc. 12. Hypertension. 13. Hyperlipidemia. 14. Hypertriglyceridemia. 15. Hypovitaminosis D. 16. Fibroid uterus. 17. Endometrial thickening, etiology undetermined. 1. New fever. 2. Tachycardia. 3. Gram-negative coral left pyelonephritis and urinary tract infection and cystitis. 4. Normocytic anemia. 5. Elevated erythrocyte sedimentation rate of 130. 6. Granulocytosis. 7. Hypokalemia. 8. Severe symptomatic diabetic gastroparesis. 9. History of longstanding noncompliance and poor compliance with medication and diet. 10. Elevated cardiac C-reactive protein of greater than 267 and elevated high sensitivity C-reactive protein of greater than 15. 11. Uncontrolled insulin-requiring diabetes mellitus with hemoglobin A1c of 13.3 and fructosamine of 390. 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 13. Hepatomegaly with hepatic steatosis and gallbladder wall thickening. 14. History of hypertension. 15. History of hyperlipidemia, severe hypertriglyceridemia. 16. Hypovitaminosis D. 17. Morbid obesity. 18. Severe longstanding dietary and medication noncompliance. 1. Severely symptomatic diabetic gastroparesis with abdominal pain and nausea and vomiting. 2. Tachycardia. 3. Extremely poor dietary and medication noncompliance. 4. Normocytic anemia with granulocytosis. 5. Elevated erythrocyte sedimentation rate. 6. Uncontrolled diabetes mellitus with hyperglycemia. 7. Uncontrolled insulin-requiring diabetes mellitus with hyperglycemia and hemoglobin A1c of 13.3. 8. Hypokalemia. 9. Elevated C-reactive protein of greater than 15. 10. Hypertriglyceridemia, hyperlipidemia with elevated LDL and decreased HDL. 11. Hypovitaminosis D. 12. Questionable urinary tract infection with proteinuria, pyuria, microscopic hematuria, bacteriuria. 13. Questionable left-sided pyelonephritis with left renal perinephric fat infiltration with mild left-sided pyelonephritis. 14. Morbid obesity. 15. Thickened endometrial lining with heterogenicity in cystic areas. 16. Uterine fibroid. 17. Thickened heterogeneous endometrium echo complex with internal cystic areas. 18. Hypertension. 19. Possible urinary tract infection with cystitis. PLAN:. At present, the patient is to be continued on IV fluid, IV antibiotics. The patient is to be continued on the medications as per the MAR of 09/16/2018 which is reviewed. In addition, I have advised the patient and again updated about the consequences and complication of noncompliance about her medications and treatment plan and the patient was advised about the complications and consequences of her diabetes and high cholesterol, high triglyceride, obesity, and complication and consequences of noncompliance with diet, medication etc., which she again acknowledge and understand. The patient was explained very clearly about vision loss, cerebral complication, coronary complications, renal failure, loss of limbs secondary to the patient's underlying comorbidity which the patient states that from now onwards, she will take care of everything and will be more compliant. At present, in addition, I have also advised the patient to seek outpatient [facility] evaluation and followup for the transvaginal ultrasound which shows thickened endometrium. This had also been explained to the patient during multiple office visits in the past. Dictated and electronically signed, not read. Ryan Brown MD [facility]
[2018-09-18 13:16] LABS: GLYCOMARK(R) 1.5 mcg/mL (7.5-28.4)
== END 2018-09-17 16:31 | disposition home or self-care (01) | DRG 74 ==
LOC: ED 20:53 → ERH 09-14 04:19 → 5RSO 09-14 06:16 → OBSVTOIN 09-15 08:34
PROVIDERS: ADMIT Internal Medicine; ATTEND Internal Medicine
DX: E11.43 Type 2 diabetes mellitus with diabetic autonomic (poly)neuropathy (principal); K31.84 Gastroparesis; N12 Tubulo-interstitial nephritis, not specified as acute or chronic; N30.91 Cystitis, unspecified with hematuria; B96.1 Klebsiella pneumoniae [K. pneumoniae] as the cause of diseases classified elsewhere; E11.65 Type 2 diabetes mellitus with hyperglycemia; F31.9 Bipolar disorder, unspecified; E78.5 Hyperlipidemia, unspecified; E66.01 Morbid (severe) obesity due to excess calories; M17.0 Bilateral primary osteoarthritis of knee; E78.1 Pure hyperglyceridemia; E87.6 Hypokalemia; R79.82 Elevated C-reactive protein (CRP); R70.0 Elevated erythrocyte sedimentation rate; R00.0 Tachycardia, unspecified; D25.9 Leiomyoma of uterus, unspecified; I11.9 Hypertensive heart disease without heart failure; F41.9 Anxiety disorder, unspecified; J45.909 Unspecified asthma, uncomplicated; E55.9 Vitamin D deficiency, unspecified; K21.9 Gastro-esophageal reflux disease without esophagitis; R16.0 Hepatomegaly, not elsewhere classified; D63.8 Anemia in other chronic diseases classified elsewhere; Z68.36 Body mass index [BMI] 36.0-36.9, adult; Z91.19 Patient's noncompliance with other medical treatment and regimen; Z79.899 Other long term (current) drug therapy; Z87.440 Personal history of urinary (tract) infections; Z91.11 Patient's noncompliance with dietary regimen; Z79.4 Long term (current) use of insulin; Z91.14 Patient's other noncompliance with medication regimen; Z87.891 Personal history of nicotine dependence